=== PATIENT | male | born 1965 | race Caucasian/White ===

== ENCOUNTER 2025-05-26 14:38 | Emergency (ER) | payer OTHER, SELFPAY ==
--- NOTE | ~2025-05-26 | XR_ITS ---
EXAMINATION: XR chest 2V, 05/26/2025 15:02 PHYSICIAN PRACTICE MANAGER HISTORY: cough x3 days. Blood tinged sputum COMPARISON: No comparisons available. Technique: 2 views obtained. Findings: The lungs are clear, no effusion. No pneumothorax. Heart is normal size. Mediastinal and hilar contours are within normal limits. Bony thorax no acute abnormality. Impression: No acute cardiopulmonary abnormality. Reviewed, dictated and finalized at location P. ICIAN PRACTICE MANAGER Impression: No acute cardiopulmonary abnormality.
[2025-05-26 14:46] VITALS: BP 138/105; PULSE 87; RESP 18; TEMP 36.6; O2SAT 99
[2025-05-26 14:50] VITALS: BP 152/85
--- NOTE | 2025-05-26 15:01 | ED_ITS ---
HPI - URI/Sore Throat General Chief Complaint: Upper Respiratory Infection Stated Complaint: respiratory issues Time Seen by Provider: 05/26/25 14:53 Source: patient and RN notes reviewed Mode of arrival: ambulatory Limitations: no limitations History of Present Illness HPI Narrative: 59-year-old male patient presents today complaining of a 2-3 day history of cough, sore throat, rhinorrhea, postnasal drip. Today he coughed in the sputum was clear with some blood tinging. Denies shortness of breath or fever. He has been taking some Mucinex with little relief. Related Data Home Medications ?Medication ?Instructions ?Recorded ?Confirmed ?Last Taken ?Type atorvastatin 20 mg tablet mg 05/26/25 Unknown History elviteg 150 mg-cob 150 mg-emtricit tablet 05/26/25 Un known History 200 mg-tenofo alafenam 10 mg tablet (Genvoya) lisinopril 20 mg tablet mg 05/26/25 Unknown History metformin 500 mg tablet mg 05/26/25 Unknown History metoprolol succinate 25 mg mg PO 05/26/25 Unknown His tory tablet,extended release 24 hr semaglutide 2 mg/dose (8 mg/3 mL) mg subcut 05/26/25 Unknown History subcutaneous pen injector (Ozempic) Allergies Allergy/AdvReac Type Severity Reaction Status Date / Time acetaminophen (From Allergy Intermediate hives Verified 05/26/25 14:52 Darvocet-N) propoxyphene (From Allergy Intermediate hives Verified 05/26/25 14:52 Darvocet-N) PMFSH Comments At time of signature, I have reviewed and agree with nursing past medical, surgical, social and family history unless otherwise noted. Please see nursing chart for further information. There is no relevant family history pertinent to the presenting complaint Exam Narrative: GENERAL: Well-appearing, well-nourished, and in no acute distress. HEAD: Normocephalic, atraumatic. EYES: EOMI. No redness or drainage. Conjunctivae normal. ENT: Mucous membranes pink and moist. Nares clear. No rhinorrhea. TMs normal bilaterally. Throat normal. Uvula midline. NECK: Normal AROM. Supple. No lymphadenopathy. CHEST: No respiratory distress. Clear to auscultation. HEART: Regular rate and rhythm. No murmur appreciated. EXTREMITIES: Normal range of motion. No edema. SKIN: Warm, dry, no rash. Capillary refill normal. Normal skin turgor. NEURO: No focal deficits. Alert and oriented x3. Gait steady. PSYCH: Normal affect. No signs of depression or anxiety. Course Course Level of Care: Express Care Visit Vital Signs Vital signs: Vital Signs Temperature 98 F 05/26/25 14:46 Pulse Rate 87 05/26/25 14:46 Respiratory Rate 18 05/26/25 14:46 Blood Pressure 138/105 H 05/26/25 14:46 Pulse Oximetry 99 05/26/25 14:46 Oxygen Delivery Room Air 05/26/25 14:46 Temperature 98 F 05/26/25 14:46 Pulse Rate 87 05/26/25 14:46 Respiratory Rate 18 05/26/25 14:46 Blood Pressure 152/85 H 05/26/25 14:50 Pulse Oximetry 99 05/26/25 14:46 Oxygen Delivery Room Air 05/26/25 14:46 Reviewed MDM - URI/Sore Throat MDM Narrative Medical decision making narrative: 59-year-old male patient presents today complaining of a 2-3 day history of cough, sore throat, rhinorrhea, postnasal drip. Today he coughed in the sputum was clear with some blood tinging. Denies shortness of breath or fever. He has been taking some Mucinex with little relief. Upon exam, patient is mildly ill appearing. Lung auscultation normal. Chest x-ray normal. Symptoms likely vi ral in etiology. Discussed regu-ysp-rfonury medication use and duration of illness. No prescription medications indicated at this time. Anticipatory guidance given. Vital signs stable. Blood pressure mildly elevated. Differential Diagnosis Differential diagnosis: Likely upper respiratory infection, viral infection, bronchitis and other (Pneumonia) Imaging Data Radiologist's impression: ITS Impressions Chest X-Ray 05/26/25 15:08 Impression: No acute cardiopulmonary abnormality. Critical Care Time Critical Care Time Critical Care Time: No Discharge Plan Discharge Clinical Impression: Upper respiratory infection Qualifiers: URI type: unspecified URI Qualified Code(s): J06.9 - Acute upper respiratory infection, unspecified Patient Disposition: Home Condition: Stable Instructions: Upper Respiratory Infection (DC) Additional Instructions: Your chest x-ray is negative today. Your symptoms are likely due to a viral illness, which is not treated with antibiotics. Virus symptoms can last for up to 7-10days. Take Tylenol or ibuprofen for pain or fever. Rest and stay hydrated. Use a humidifier to wash your as the air. You may also try saline nasal spray to help with moisture inside your nasal passages. Follow up with your PCP in 7 days if symptoms are not improving. Go to the ER immediately if you develop shortness of breath, difficulty swallowing, or any other concerning symptoms. Patient Language: [place] Citizen Prescriptions: No Action metformin 500 mg tablet atorvastatin 20 mg tablet lisinopril 20 mg tablet metoprolol succinate 25 mg tablet extended release 24 hr PO Genvoya [phone] mg tablet Ozempic 2 mg/dose (8 mg/3 mL) pen injector SUBCUT Follow-up/Referrals: PHYSICIAN NOT ON STAFF,NONSTAFF [Primary Care Provider] Time of Disposition: 15:22
--- OUTSIDE RECORDS SUMMARY | 2025-05-26 22:34 | XMS_ITS | Clinical Summary ---
Author Organization [facility] Address [address], [address] [address] Phone Care Team Providers Care Telephone Worker Name Role Phone Chris John MD Primary Care Provider Social History Tobacco Use Types Packs/Day Years Used Date Smoking Tobacco: Never Assessed Sex and Gender Information Value Date Recorded Sex Assigned at Not on file Legal Sex Male 11:54 AM CDT Gender Identity Not on file Sexual Orientation Not on file Plan of Treatment Health Maintenance Due Date Last Done Comments Hepatitis C Virus (HCV) Screening 1965 TdaP Immunization 1965 Varicella Immunization (1 of 2 - 13+ 2-dose series) 1978 Hepatitis B Immunization (1 of 3 - 19+ 3-dose series) 1984 Cologuard 2010 Colonoscopy 2010 Colorectal Cancer Screening 2010 Immunochemical Fecal Occult Blood 2010 Pneumococcal Immunization (5 0+ years) (1 of 1 - PCV) 11/16/2015 Zoster Immunization (1 of 2) 11/16/2015 Influenza Immunization (#1) 2025 SARS-COV-2 Immunization ( - 2024- season) 2025 Respiratory Syncytial Virus (RSV) Immunization (Adult) (1 - 1-dose 75+ series) 2040 Human Papillomavirus (HPV) Immunization Aged Out No longer eligible b ased on patient's age to complete this topic Meningococcal Immunization (ACWY) Aged Out No longer eligible based on patient's age to complete this topic Rotavirus Immunization Aged Out No lo nger eligible based on patient's age to complete this topic Insurance [employer] [facility] OAP Care Teams Telephone Worker Relationship Specialty Start Date End Date Chris John MD [address] [facility] [address] [place] [address] PCP - General Internal Medicine 03/01/21
--- OUTSIDE RECORDS SUMMARY | 2025-05-26 22:34 | XMS_ITS | Clinical Summary ---
Author Organization [facility] D Address [address] [place] [address] Care Team Providers Care Leaded Glass Installer Name Role Phone Bowen Hurtado MD Unavailable [phone] No, Physician Primary Care Provider [phone] Allergies Active Allergy Reactions Criticality Noted Date Comments Propoxyphene Other (See comments) Low 10/17/2020 Medications aspirin 81 mg tablet take 1 tablet by oral route every other day 0 0 3 Active ALPRAZolam (XANAX) 0.5 mg tablet Take 1 tablet (0.5 mg total) by mouth nightly as needed for anxiety Active metoprolol XL (TOPROL-XL) 25 mg extended release tablet TAKE 1 TABLET (25 MG TOTAL) BY MOUTH DAILY. 90 tablet 3 5 11/10/19 26 Active semaglutide (OZEMPIC) 2 mg/dose (8 mg/3 mL) pen injector injection Inject 2 mg under the skin every 7 days 9 mL 3 5 Active metFORMIN (GLUCOPHAGE) 500 mg tablet Take 2 tablets (1,000 mg total) by mouth daily with breakfast 180 tablet 3 5 Active lisinopriL (PRINIVIL,ZESTRI L) 20 mg tabletIndication s:Encounter for issue of repeat prescription TAKE 1 TABLET BY MOUTH EVERY DAY 90 tablet 2 5 Active bnkibfh-dlj-kxlj i-tenof ALAFEN (Genvoya) [phone] mg tablet TAKE 1 TABLET BY MOUTH DAILY 90 tablet 5 Active atorvastatin (LIPITOR) 20 mg tablet TAKE 1 TABLET BY MOUTH EVERY DAY 90 tablet 1 Active COVID (COMIRNATY) 30 mcg/0.3 mL syringe Inject 0.3 mL into the muscle as instructed once for 1 dose 0.3 mL 5 05/03/20 25 Active Problems Problem Noted Date Diagnosed Date Hypersomnia 01/29/2024 Primary insomnia 01/29/2024 Other fatigue 09/18/2023 Overview (09/18/2023): Patient with borderline apnea in home sleep study 12/2022, however no true diagnosis. He is reporting feeling extremely fatigued despite getting a full night's sleep and requesting further evaluation. - provided with information on sleep hygiene - referral to sleep Medicine for additional evaluation -TSH today Obstructive sleep apnea 11/20/2022 11/28/19 Onychomycosis of toenail 11/18/2022 023 Hyperlipidemia 11/18/2022 11/27/2022 Assessment & Plan (05/14/2023 2:39 PM INDUSTRIAL MAINTENANCE MILLWRIGHT): On atorvastatin 20 -cont current regimen Angina pectoris, unspecified 10/19/2021 Anxiety 09/28/2021 Human immunodeficiency virus infection Overview (12/29/2024): HIV acquisition 1994, risk factor MSM. No history of opportunistic infections or known mutations. Initiated on therapy in 1995, with regimen until 3-4 years ago being Combivir + nelfinavir for > 10 years. Well controlled throughout his care with an undetectable VL for several years. Last labs: CD4 1404 (33%, 03/2022), VL <20 detected (08/2024) ART: Genvoya Genotype: None in system, no mutations documented - continue current regimen - VL - not sexually active currently - consider BIC/TAF/FTC vs DTG/3TC at next visit (he will read about these) Assessment & Plan (09/18/2023 11:53 AM CDT): - continue Genvoya for now - discussed with patient that we could consider switching to Delstrigo if he continues to have concerns regarding weight loss and central adiposity; he expresses interest, but states that he would like to finish his current fill of Genvoya first. Patient in agreement that he will call when he is almost out in order to request Rx for Delstrigo -due to insurance, patient's HIV meds should be sent to [facility] specialty pharmacy Assessment & Plan (05/14/2023 2:38 PM INDUSTRIAL MAINTENANCE MILLWRIGHT): Diagnosed 1994, likely via sexual acquisition. Current regimen of Genvoya since 2018. Well controlled with VL undetectable for several years. Last CD4 reported to be > 1200. Previously followed with Dr. John, and established care in the ID clinic 11/2021. No known history of OI or mutations - CMP, VL, baseline annuals today - Pt receives all meds via [facility] [facility] - Discussed that in the future he could potentially be transitioned to Biktarvy to not have a boosting agent, or potentially to a two-drug regimen such as Dovato or Juluca - Continue Genovya once daily at present Assessment & Plan (12/05/2021 10:16 PM CDT): Diagnosed 1994, likely via sexual acquisition. Current regimen of Genvoya since 2018. Well controlled with VL undetectable for several years. Last CD4 reported to be > 1200. Previously followed with Dr. John, and established care in the ID clinic 11/2021. No known history of OI or mutations - CMP, VL, baseline annuals today - Pt receives all meds via [facility] - Discussed that in the future he could potentially be transitioned to Biktarvy to not have a boosting agent, or potentially to a two-drug regimen such as Dovato or Juluca - Continue Genovya once daily at present Encounter for screening colonoscopy 07/05/2021 Overview (07/05/2021): Added automatically from request for surgery [id number] Type 2 diabetes mellitus 03/31/2019 Overview (12/29/2024): Latest A1c 7.2 from 6.2, per pt d/t increased calories during holiday season. Rx: Ozempic 2mg weekly, metformin 1g daily Changes: none Microalbumin/Creatinine ordered today 12/2024 ACEi/ARB prescribed: lisinopril 20 Antiplatelet therapy and statin prescribed yes Retinopathy no, last seen 05/2024 - continue current regimen - consider tirzepatide next visit pending weight Assessment & Plan (08/25/2024 2:40 PM INDUSTRIAL MAINTENANCE MILLWRIGHT): - increase ozempic to 2mg. Pt reports he has just received a new fill, would like to use up his old doses before switching over (last time he increased his dose, reported using his 0.5 biweekly until he finished then switched to 1 weekly) - repeat A1c today - meformin 1g daily for now. if A1c < 6.5, will downtitrate to 500 daily. Assessment & Plan (01/20/2024 5:30 PM CDT): - continue ozempic 1 weekly with monitoring of side effects - given A1c persistently under goal, reported GI side effects, will reduce dose of metformin from 1 BID to 1 daily to see if this helps with side effects while allowing ongoing GLP dosing. - continue to monitor A1c q3mo (6.4 today) - reminded pt to call to schedule annual eye exam Assessment & Plan (09/18/2023 11:44 AM CDT): Well controlled with metformin 1g BID, Ozempic 0.5mg weekly. However patient reports desire for additional weight loss (current BMI 26) - A1c today -continue metformin for now; we will consider decrease if A1c downtrends -increase Ozempic dose to 1mg weekly; patient to notify us if he develops significant GI side effects Assessment & Plan (05/14/2023 2:38 PM INDUSTRIAL MAINTENANCE MILLWRIGHT): Well controlled with metformin 1g BID, Ozempic 0.5mg weekly - A1c today. Managed by PCP Assessment & Plan (12/05/2021 10:17 PM CDT): Well controlled with metformin 1g BID, Ozempic 0.5mg weekly - A1c today. Managed by PCP Coronary artery disease invo lving [place] coronary artery of [place] heart without angina pectoris 07/02/2017 Assessment & Plan (10/17/2020 9:59 AM CDT): No symptoms of myocardial ischemia. Continue aspirin and Imdur. I did recommend regular aerobic exercise. A stationary bike would be great for him. Assessment & Plan (10/16/2019 9:35 AM CDT): No symptoms of myocardial ischemia. Continue aspirin and isosorbide. Assessment & Plan (10/17/2018 10:26 AM CDT): Asymptomatic. Continue aspirin and isosorbide. New prescription sent for nitroglycerin. Assessment & Plan (07/02/2017 9:52 AM INDUSTRIAL MAINTENANCE MILLWRIGHT): No symptoms of myocardial ischemia. Continue anti-platelet and nitrate therapy. Dyslipidemia 07/02/2017 Assessment & Plan (12/05/2021 10:19 PM CDT): On atorvastatin 40mg daily at present. Discussed that due to boosted PI in Genvoya, current dose would likely be too high (likely equivalent to > 80mg daily). Advised to discuss with Engineering Lab Technician to consider transitioning to an alternative statin. If atorvastatin is to be continued, would recommend a maximum dose of 20mg daily Assessment & Plan (10/17/2020 9:59 AM CDT): On chronic lipid lowering therapy with good control. No changes made. He is not having any side effects atorvastatin. The occasional Charley horse is not consistent with statin myalgia. Assessment & Plan (10/16/2019 9:36 AM CDT): He is on chronic high-intensity statin therapy. Lipids have historically been well controlled with this. In the current pandemic, there was not an opportunity for checking lipids with this visit. Assessment & Plan (10/17/2018 10:26 AM CDT): Point of care testing done today reviewed. Lipids look good. Continue atorvastatin. Assessment & Plan (07/02/2017 9:52 AM INDUSTRIAL MAINTENANCE MILLWRIGHT): On chronic lipid-lowering therapy. Today's LDL is below 100. Essential hypertension 07/02/2017 Assessment & Plan (05/14/2023 2:39 PM INDUSTRIAL MAINTENANCE MILLWRIGHT): Well controlled on lisinopril 20mg daily -cont current regimen Assessment & Plan (12/05/2021 10:20 PM CDT): Well controlled with lisinopril 20mg daily Assessment & Plan (10/17/2020 9:59 AM CDT): Blood pressure is adequately controlled on current regimen. No change was made. Assessment & Plan (10/16/2019 9:35 AM CDT): Blood pressure is adequately controlled on current regimen. No change was made. Assessment & Plan (10/17/2018 10:26 AM CDT): Blood pressure is adequately controlled on current regimen. No change was made. Assessment & Plan (07/02/2017 9:52 AM INDUSTRIAL MAINTENANCE MILLWRIGHT): Blood pressure is adequately controlled on current regimen. No change was made. Major depression 07/08/1990 Overview (09/28/2021): hospitalized Concussion 07/08/1973 Coronary artery disease Assessment & Plan (12/05/2021 10:18 PM CDT): History of KVNG to OM 2009, well controlled symptoms since, no PRN NTG use. Recent stress test WNL - Follow-up with Cardiology as planned - See HLD for discussion re: statin dose Resolved Problems Problem Noted Date Diagnosed Date Resolved Date Hyperglycemia 09/28/2021 01/11/2025 Diabetes mellitus, type 2 Encounters Date Type Department Care Team Description 05/14/2025 2:00 PM INDUSTRIAL MAINTENANCE MILLWRIGHT Procedure visit [facility] Medicine Infectious Diseases [address] [place] [phone] Encounter for immunization (Primary Dx) 05/07/2025 Telephone [facility] Medicine Infectious Diseases [address] [place] [address] [place] [address] Jasmine Turner CMA 05/05/2025 1:15 PM CDT Immunization [facility] [address] [place] [phone] Need for vaccination (Primary Dx) 05/03/2025 Orders Only [facility] Medicine Infectious Diseases [address] [place] [phone] Abiodun Mcclellan MD Asymptomatic HIV infection, with no history of HIV-related illness (HCC) (Primary Dx) from Last 3 Months Immunizations Immunization Administration Dates Next Due COVID-19 mRNA (WinWeb) 0.3 m L (30 mcg) vaccine (12 years and up) 05/14/2025,04/21/2024,05/14/2023 Hep A, Adult 11/27/2022,07/17/2022 Hep B, Dialysis 05/14/2023,11/27/2022,07/17/2022 Influenza, Quadrivalent, Spl it, Preservative Free, Intramuscular 04/30/2023,05/22/2022 Influenza, Trivalent, Preser vative Free, Intramuscular 05/05/2025,04/21/2024 Meningococcal A,C,W,Y-TT (Aka Menquadfi) 024,01/14/2024 Pneumococcal Polysaccharide PPV23 12/05/2021 Tdap 12/05/2021 ZOSTER Recombinant 11/22/2023,09/17/2023 Surgical History Surgery Date Site/Laterality Comments TONSILLECTOMY 07/08/1986 - 07/07/1987 CORONARY STENT PLACEMENT 07/08/2009 - 07/07/2010 Obtuse Marginal Medical History Medical History Date Comments Positive laboratory testing for human immunodefi ciency virus (HCC) Concussion 1974 Major depression 1990 hospitalized Coronary artery disease Essential hypertension Dyslipidemia Hyperglycemia Diabetes mellitus, type 2 Anxiety Family History Medical History Relation Name Comments Coronary artery disease Brother 2 Stent Brother 2 Coronary artery disease Father Relation Name Status Comments Brother 1 Alive Brother 2 Father Alive Maternal Grandfather Maternal Grandmother Paternal Grandfather Paternal Grandmother Social History Tobacco Use Types Packs/Day Years Used Date Smoking Tobacco: Never Smokeless Tobacco: Never Tobacco Cessation:Counseling Given: Not Answered Alcohol Use Standard Drinks/Week Comments Yes 0 (1 standard drink = 0.6 oz pur e alcohol) PHQ-2 Answer Date Recorded PHQ-2 Total Score (If total score is 3 or more points, staff should administer the PHQ-9) 2 12/23/2024 PHQ-9 Answer Date Recorded PHQ-9 Total Score 9 08/20/2024 Sex and Gender Information Value Date Recorded Sex Assigned at Not on file Legal Sex Male 2:07 AM INDUSTRIAL MAINTENANCE MILLWRIGHT Gender Identity Male 10/16/2020 8:01 PM CDT Sexual Orientation Not on file Last Filed Vital Signs Vital Sign Reading Time Taken Comments Blood Pressure 124/82 12/29/2024 1:13 PM CDT Pulse 77 12/29/2024 1:13 PM CDT Temperature 36.5 C (97.7 F) 12/29/2024 1:13 PM CDT Respiratory Rate 18 04/21/2024 1:36 PM CDT Oxygen Saturation 97% 12/29/2024 1:13 PM CDT Inhaled Oxygen Concentration - - Weight 74.8 kg (165 lb) 12/29/2024 1:13 PM CDT Height 170.2 cm (5' 7.01) 12/29/2024 1:13 PM CD T Body Mass Index 25.84 12/29/2024 1:13 PM CDT Plan of Treatment Health Maintenance Due Date Last Done Comments HLA B 5701 Typing 1965 Prostate Cancer Screening-PSA 1965 Dilated Eye Exam 1965 Foot Exam 1965 HIV+ Chlamydia and Gonorrhea Screening (Rectal) 1976 HIV+ Chlamydia and Gonorrhea Screening (Throat) 1978 G6PD 11/16/1983 Regular Well Visit/Exam 18-64 11/16/1983 Pneumococcal vaccine <65 (2 of 2 - PCV) 12/05/2022 12/05/2021 Proteinuria screening Urinalysis (UA) 03/13/2023 03/13/2022 Hepatitis A Vaccines (2 of 2 - Risk 2-dose series) 05/30/2023 11/27/2022, 07/17/2022 HIV + Chlamydia and Gonorrhe a Screening (Urine) 11/28/2023 11/27/2022 T Spot (quantiferon gold) 11/28/2023 11/27/2022, Osteoporosis Screening-Bone Density Scan 04/05/2025 04/05/2022 Hepatitis C Screening 04/21/2025 04/21/2024 , 11/27/2022, 12/05/2021 eGFR 08/28/2025 08/28/2024, 04/07, 01/14/2024, Additional history exists Lipid Panel 10/30/2025 10/30/2024, 10/07, 09/17/2023, Additional history exists Covid-19 Vaccine (6 - Pfizer risk season) 2025 05/14/2025, 04/21/2024, 05/14/2023, Additional history exists Albumin Creatinine Ratio, Urine 12/29/2025 , 01/14/2024 Depression Screening 12/29/2025 12/29/2024, 04/21/2024, 04/21/2024, Additional history exists Hemoglobin A1C 12/29/2025 12/29/2024, 2 07/2024, 04/21/2024, Additional history exists RPR Screening 12/29/2025 12/29/2024, 08/09, 09/17/2023, Additional history exists Colon Cancer Screening-Colonoscopy 10/17/2031 10/16/2021 DTaP/Tdap/Td Vaccine (2 - Td or Tdap) 12/06/2031 12/05/2021 Colon Cancer Screening-CT Colonography Discontinued 10/16/2021 Colon Cancer Screening-DNA Stool Discontinued 10/17/19 Colon Cancer Screening-FIT Discontinued 10/16/2021 Colon Cancer Screening-Sigmoidoscopy Discontinued 10/16/2021 Hepatitis B Vaccines Completed 05/14/2023, 11/27/2022, 07/17/2022 Zoster Vaccine Completed 11/22/2023, 09/17/2023 Influenza Vaccine Completed 05/05/2025, , 04/30/2023, Additional history exists Procedures Procedure Name Priority Date/Time Associated Diagnosis Comments HEMOGLOBIN A1C Routine 12/29/2024 2:01 PM CDT Type 2 diabetes mellitus without complication, without long-term current use of insulin (HCC) RPR Routine 12/29/2024 2:01 PM CDT Asymptomatic HIV infection, with no history of HIV-related illness (HCC) ALBUMIN CREATININE RATIO, URINE Routine 12/29/2024 1:54 PM CDT Type 2 diabetes mellitus without complication, without long-term current use of insulin (HCC) POCT LIPID PANEL Routine 10/30/2024 10:2 6 AM CDT Coronary artery disease involving [place] coronary artery of [place] heart without angina pectoris COMPREHENSIVE METABOLIC PANEL Routine 08/28/2024 1:17 PM INDUSTRIAL MAINTENANCE MILLWRIGHT Asymptomatic HIV infection, with no history of HIV-related illness (HCC) HEPATITIS C ANTIBODY Routine 04/21/2024 2:26 PM CDT Asymptomatic HIV infection, with no history of HIV-related illness (HCC) T-SPOT.TB Routine 11/27/2022 3:45 PM CDT Asymptomatic HIV infection, with no history of HIV-related illness (HCC) DEXA AXIAL SKELETON BONE DENSITY 1 OR MORE SITES Schedule Routine, Read Routine (OP Routine) 04/05/2022 11:36 AM CDT Screening for osteoporosis URINALYSIS AND REFLEX TO MICROSCOPIC Routine 03/13/2022 1:20 PM CDT Asymptomatic HIV infection, with no history of HIV-related illness (HCC) COLONOSCOPY 10/16/2021 11:42 AM CDT from Last 3 Months or Most Recently Relevant to Health Maintenance Results * RPR Blood (12/29/2024 2:01 PM CDT) RPR Nonreactive Nonreactive Blood 12/29/2024 2:01 PM CDT 12/29/2024 3:09 PM CDT Steven Blank MD LAB MICROBIOLOGY - GENER AL ORDERABLES Final Result Performing Organization Address [facility] Co de Phone Number [facility] [place] [address] * (ABNORMAL) Hemoglobin A1c (12/29/2024 2:01 PM CDT) Hgb A1C 6.2(H) 4.0 - 5.6 % Estimated Average Glucose 131 mg/dL [facility] Comment: The ADA recommends reporting an estimated Average Glucose (eAG) with all Hemoglobin A1c results using the equation derived from a study of 507 normal and diabetic adults. Minority populations were underrepresented and children were not included. (Diabetes Care 2020; 43(S1): S66-S76). The eAG is not equivalent to a fasting glucose. Blood 12/29/2024 2:01 PM CDT 12/29/2024 3:09 PM CDT Steven Blank MD LAB BLOOD ORDERABLES Fin al Result Performing Organization Address [facility] de Phone Number [facility] [place] [address] * Albumin Creatinine Ratio, Urine (12/29/2024 1:54 PM CDT) Albumin Ur <12.0 mg/L Comment: Interpretive Data No reference range established. Current interpretive data was last revised 2018. Creatinine Ur 98.6 mg/dL [facility] Comment: Interpretive Data No reference range established. Current interpretive data was last revised 2018. Albumin Creatinine Ratio, Ur <12 1 - 29 mg/g [facility] Urine 12/29/2024 1:54 PM CDT 12/29/2024 5:54 PM CDT Steven Blank MD LAB URINE ORDERABLES Fin al Result Performing Organization Address [facility] Co de Phone Number [facility] Department [place] [address] * POCT lipid panel (10/30/2024 10:26 AM CDT) Cholesterol, POC 116 mg/dL HDL, POC 38 mg/dL Triglycerides, POC 98 mg/dL LDL Cholesterol POC 59 mg/dL Chol/HDL Ratio, POC 1.6 Non-HDL Cholesterol, POC 79 mg/dL Cholesterol Total, POC 116 mg/dL Capillary blood 10/30/2024 1 0:26 AM CDT us Bowen Hurtado MD POINT OF CARE TEST ORDERABL ES Final Result * (ABNORMAL) Comprehensive metabolic panel (08/28/2024 1:17 PM INDUSTRIAL MAINTENANCE MILLWRIGHT) Glucose 110(H) 65 - 99 mg/dL [facility] Comment: Fasting reference interval For someone without known diabetes, a glucose value between 100 and 125 mg/dL is consistent with prediabetes and should be confirmed with a follow-up test. BUN 13 7 - 25 mg/dL [facility] Creatinine 1.08 0.70 - 1.30 mg/dL [facility] eGFR 80 > OR = 60 mL/min/1.7 3m2 [facility] BUN/creat ratio SEE NOTE: 6 - 22 (calc) [facility] Comment: Not Reported: BUN and Creatinine are within reference range. Sodium 143 135 - 146 mmol/L [facility] Potassium, pl 3.9 3.5 - 5.3 mmol/L [facility] Chloride 103 98 - 110 mmol/L [facility] CO2 28 20 - 32 mmol/L [facility] Calcium 9.7 8.6 - 10.3 mg/dL [facility] Protein, sr 7.3 6.1 - 8.1 g/dL [facility] Albumin 4.6 3.6 - 5.1 g/dL [facility] GLOBULIN 2.7 1.9 - 3.7 g/dL (calc) [facility] Alb/glob ratio 1.7 1.0 - 2.5 (calc) [facility] Bilirubin, total 0.9 0.2 - 1.2 mg/dL [facility] Alk phos 85 35 - 144 U/L [facility] AST 30 10 - 35 U/L [facility] ALT (SGPT) 42 9 - 46 U/L [facility] Blood 08/28/2024 1:17 PM INDUSTRIAL MAINTENANCE MILLWRIGHT 08/28/2024 1:18 PM INDUSTRIAL MAINTENANCE MILLWRIGHT David Casanova MD PhD LAB BLOOD ORDERABLES Final Result [facility] [address] [place] [address] * Hepatitis C antibody Blood (04/21/2024 2:26 PM CDT) Pathologist [facility] Hep C Ab Nonreactive Nonreactive Comment:Antibodies to HCV no t detected. Does NOT exclude the possibility of recent exposure to HCV. Current interpretive data was last revised on 22 Blood 04/21/2024 2:26 PM CDT 04/21/2024 7:35 PM CDT David Casanova MD PhD LAB MICROBIOLOGY - GENERAL ORDERABLES Final Result Performing Organization Address City/[facility]/ZIP Co de Phone Number [facility] [place] [address] * T-SPOT.TB (11/27/2022 3:45 PM CDT) T-SPOT.TB Negative [facility] Comment: Normal Value: Negative A negative test result does not exclude the possibility of exposure to or infection with Mycobacterium tuberculosis (M. tuberculosis). Patients with recent exposure to TB infected individuals exhibiting a negative T-SPOT.TB result should be considered for retesting within 6 weeks or if other relevant clinical symptoms indicate. Results from T-SPOT.TB testing must be used in conjunction with each individual's epidemiological history, current medical status, and results of other diagnostic evaluations. The T-SPOT.TB test is qualitative and results are reported as positive, borderline or negative, given that the test controls perform as expected. In line with the Centers for Disease Control and Prevention's 2010 recommendation to report quantitative measurements alongside the qualitative result, the laboratory provides spot counts for informational purposes only. The T-SPOT.TB test should not be interpreted as a quantitative test. T-SPOT.TB Panel A Spot Count 0 [facility] T-SPOT.TB Panel B Spot Count 0 [facility] T-SPOT.TB Negative Control Passed [facility] T-SPOT.TB Positive Control Passed [facility] Comment: Test Performed at: [employer] [employer] [address] [place] [phone] SULY CEDENO MD,PHD Blood 11/27/2022 3:45 PM CDT 11/27/2022 4:26 PM CDT John Guajardo MD LAB MICROBIOLOGY - GENERAL ORDERABLES Final Result [facility] Department [place] [address] * Dexa Axial Skeleton Bone Density 1 or 2 Site (04/05/2022 11:36 AM CDT) Anatomical Region Laterality Modality Body N/A Other 04/05/2022 6:57 PM CDT Narrative 04/05/2022 6:59 PM CDT EXAM DESCRIPTION: DEXA AXIAL SKELETON BONE DENSITY 1 OR MORE SITES REASON FOR STUDY: 56 y/o year old M with given history of screening. 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 FINDINGS: AP LUMBAR SPINE L1-L4: Total BMD is 1.356 g/cm2 T-score is 2.8 LEFT HIP: Total BMD is 1.174 g/cm2 T-score is 1.9 Femoral neck BMD is 0.857 g/cm2 T-score is 0.1 FRAX: FRAX not reported due to T-scores of hip, femoral neck and/or spine being at or above -1.0 (Normal). IMPRESSION: Based on the left femoral neck bone mineral density (T-score 0.1 ) the patient has normal bone mass . REFERENCE: Bone mineral density: Normal (T-score above or = -1.0) Low bone mass (T-score between -1.0 and -2.5) replaces the previously used term osteopenia Osteoporosis (T-score = or below -2.5) Medical evaluation for secondary causes of low bone mineral density may be appropriate. FRAX is a World Health Organization validated fracture risk assessment tool that calculates a person's 10 year probability of a major osteoporosis related fracture and hip fracture. According to the National Osteoporosis Foundation guidelines, postmenopausal women and men age 50 or older with low bone mass and a 10 year probability of a major osteoporosis related fracture = or greater than 20% or a 10 year probability of a hip fracture = or greater than 3% should be considered for treatment. For further information, including treatment recommendations, please refer to the 2013 ISCD Official Positions (http://www.iscd.org) and the NOF's Clinician's Guide to Prevention and Treatment of Osteoporosis (http://www.nof.org/professionals/clinical-guidelines) THIS IS AN ELECTRONICALLY VERIFIED FINAL REPORT 04/05/2022 6:59 PM - Electronically signed by Denis Mirza M.D. MF: MARCIAL Report ID: [id number] Reading Location: [place] [address] Procedure Note Denis Mirza MD - 04/05/2022 EXAM DESCRIPTION: DEXA AXIAL SKELETON BONE DENSITY 1 OR MORE SITES REASON FOR STUDY: 56 y/o year old M with given history ofscreening. 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 (S/N [id number]) CLINICAL INFORMATION: Current height: 68 inches Maximum height: 68 inches Weight: 170 pounds Risk factors: Caffeine use COMPARISON: None available. FINDINGS: AP LUMBAR SPINE L1-L4: Total BMD is 1.356 g/cm2 T-score is 2.8 LEFT HIP: Total BMD is 1.174 g/cm2 T-score is 1.9 Femoral neck BMD is 0.857 g/cm2 T-score is 0.1 FRAX: FRAX not reported due to T-scores of hip, femoral neck and/or spine beingat or above -1.0 (Normal). IMPRESSION: Based on the left femoral neck bone mineral density (T-score 0.1 )the patient has normal bone mass . REFERENCE: Bone mineral density: Normal (T-score above or = -1.0) Low bone mass (T-score between -1.0 and -2.5) replaces thepreviously used term osteopenia Osteoporosis (T-score = or below -2.5) Medical evaluation for secondary causes of low bone mineral density may be appropriate. FRAX is a World Health Organization validated fracture risk assessmenttool that calculates a person's 10 year probability of a major osteoporosisrelated fracture and hip fracture. According to the National OsteoporosisFoundation guidelines, postmenopausal women and men age 50 or older with low bonemass and a 10 year probability of a major osteoporosis related fracture = or greater than 20% or a 10 year probability of a hip fracture = or greaterthan 3% should be considered for treatment. For further information, including treatment recommendations, please referto the 2013 ISCD Official Positions (http://www.iscd.org) and the NOF's Clinician's Guide to Prevention and Treatment of Osteoporosis (http://www.nof.org/professionals/clinical-guidelines) THIS IS AN ELECTRONICALLY VERIFIED FINAL REPORT 04/05/2022 6:59 PM - Electronically signed by Denis Mirza M.D. MF: MARCIAL Report ID: [id number] Reading Location: [place] [address] John Guajardo MD [facility] [place] PROCEDURES Final Result * Urinalysis reflex to microscopic (03/13/2022 1:20 PM CDT) Color, ur Yellow Yellow [facility] Clarity, ur Clear Clear [facility] Specific gravity, ur 1.009 1.003 - 1.030 [facility] pH, urine 6.0 [facility] Protein, ur ql Negative Negative [facility] Glucose, ur ql Negative Negative [facility] Ketones, ur Negative Negative [facility] Bilirubin, ur Negative Negative [facility] Blood, ur Negative Negative [facility] Urobilinogen, ur <2.0 <2.0 mg/dL [facility] Nitrite, ur Negative Negative [facility] Leukocyte esterase, ur Negative Negative [facility] UA reflex comment Reflex conditions for microscopic UA not met. [facility] Urine 03/13/2022 1:20 PM CDT 03/13/2022 3:13 PM CDT Narrative [facility] - 03/13/2022 3:36 PM CDT Urine pH is affected by diet, medications, systemic acid-base disturbances, and renal tubular function. pH may affect urinary stone formation. For example, urine pH below 6.0 may help reduce the tendency for calcium phosphate stones and pH greater than 6.0 may reduce the tendency for uric acid stone formation. Source: [employer]. Last revised 07-18-2017 John Guajardo MD LAB URINE ORDERABLE S Final Result [facility] Department [place] [address] * COLONOSCOPY (10/16/2021 11:42 AM CDT) Anatomical Region Laterality Modality Other Narrative Procedure Note Joycelyn London MD - 10/16/2021 11:42 AM CDT [facility] Patient Name: Kiel Cristina Procedure Date: 10/16/2021 11:42 AM Date of : 1965 Admit Type: Outpatient Age: 55 Gender: Male Attending MD: Joycelyn London M.D. Room: [facility] ENDOSCOPY ROOM 1 Note Status: Finalized Patient Profile: This is a 55 year old male. No family history ofcolon cancer. Screening colonoscopy. Procedure: Colonoscopy Indications: Screening for colorectal malignant neoplasm, Thisis the patient's first colonoscopy Referring MD: Chris John M.D. Providers: Joycelyn London M.D. Impression: - The entire examined colon is unremarkable. - Diverticulosis in the entire examined colon. - Internal hemorrhoids. - No specimens collected. Recommendation: - Repeat colonoscopy in 10 years for screening purposes. - Continue present medications. Medicines: Monitored Anesthesia Care Complications: No immediate complications. Estimated Blood Loss: Estimated blood loss: none. Procedure: Pre-Anesthesia Assessment: - Prior to the procedure, a History and Physicalwas performed, and patient medications and allergieswere reviewed. The patient's tolerance of previous anesthesia was also reviewed. The risks andbenefits of the procedure and the sedation options and risks were discussed with the patient. All questions were answered, and informed consent was obtained. Prior Anticoagulants: The patient has taken noanticoagulant or antiplatelet agents. ASA Grade Assessment: III -A patient with severe systemic disease. Afterreviewing the risks and benefits, the patient was deemed in satisfactory condition to undergo the procedure. The benefits, risks and alternatives of theprocedure and sedation were discussed and informed consentwas obtained. All questions were answered. Please referto the signed informed consent document in the medical record. The bowel preparation used was Miralax via split dose instruction. The bowel preparation usedwas bisacodyl tablets via split dose instruction. The scope was passed under direct vision. The Pediatric Colonoscope PCF-[id number] was introducedthrough the anus and advanced to the the cecum, identifiedby appendiceal orifice and ileocecal valve. Thequality of the bowel preparation was good. Bowel prep was administered using a split dose. Findings: The perianal and digital rectal examinations were normal. The cecum appeared normal. The terminal ileum was intubated andappeared normal The colon (entire examined portion) appeared normal overall. Nopolyps and no mass lesions noted. Multiple medium-mouthed diverticula were found in the entire colon. Internal hemorrhoids were found during retroflexion. The hemorrhoids were medium size. Electronically signed by Joycelyn London M.D. Joycelyn London M.D. 10/16/2021 1:57:12 PM Number of Addenda: 0 Note Initiated On: 10/16/2021 11:42 AM Procedure Code(s): --- Professional --- 66400, Colonoscopy, flexible; diagnostic, including collection of specimen(s) by brushing or washing, when performed (separateprocedure) Diagnosis Code(s): --- Professional --- Z12.11, Encounter for screening for malignant neoplasm of colon K64.8, Other hemorrhoids K57.30, Diverticulosis of large intestine without perforation orabscess without bleeding CPT copyright 2020 [employer]. All rights reserved. The codes documented in this report are preliminary and upon information coder reviewmay be revised to meet current compliance requirements. 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
--- OUTSIDE RECORDS SUMMARY | 2025-05-26 22:39 | XMS_ITS | Data Portability ---
Author Organization [place] [facility] 2nd Watch, Main Office Address [address] [place] [address] Assessment Encounter Date Assessment Date Assessment LastModified by Organization Details LastModified Time 11/20/2022 11/20/2022 Cscope- 10/2021- Karadaghy- normal per pt- repeat 10/2031 PSA- 05/2022 DM eye exam- March 2022 Call office if worse, ER if life threatening illness RTC 6 months and PRN He voices understanding of plan and agrees [email or web address] Not available 11/20/2022 10:12:44 05/22/2023 05/22/2023 Cscope- 10/2021- Karadaghy- normal per pt- repeat 10/2031 PSA- 05/2022- ordered DM eye exam- March 2022 Call office if worse, ER if life threatening illness RTC 6 months and PRN He voices understanding of plan and agrees [email or web address] Not available 05/22/2023 17:25:01 Plan of Treatment Reminders Order Date Submit Date Provider Last Modified By Organization Details Last Modified Time Details Appointments None recorded. Lab PSA, serum or plasma 2022 023 [email or web address] [facility], [address] [place], [address], 4 08:41:42 HbA1c (hemoglobin A1c), blood 2022 023 [email or web address] [facility], [address] [place], [address], 3 14:47:46 CBC w/ auto diff 2022 023 [email or web address] [facility] [address] [place], [address], 14:47:46 CMP, serum or plasma [address] [place], [address], 14:47:46 microalbumi n/creatinin e, mass ratio, urine [address] [place], [address], 14:47:46 lipid panel, serum 2022 023 [place] [address] [facility] [address] [place], [address], 3 14:47:47 TSH, serum, reflex free T4 2022 023 [place] [address] [facility] [address] [place], [address], 14:47:47 Referral None recorded. Procedures None recorded. Surgeries None recorded. Imaging home sleep study 2022 [email or web address] Vivas [facility], [address] [place] [address] [place], [address], 3 16:21:38 Medication Orders Ozempic 0.25 mg or 0.5 mg (2 mg/3 mL) subcutaneou s pen injector 2022 [facility], [facility], [place], [address], 15:01:00 Patient TargetsNo targets recorded. Patient Instructions Encounter Date Encounter Id Patient Instructions Last Modified By Organization Details Last Modified Time 11/20/2022 [id number] INFLUENZA VACCIN E Next vaccination to be given fall of 2022 TD/TDAP Patient will get at local pharmacy/health department PNEUMONIA VACCINE per ID SHINGLES Patient will get at local pharmacy/health department PSA No screening necessary patient is up to date COLORECTAL SCREENING No screening necessary patient is up to date DEPRESSION SCREENING Negative BMI Overweight Continue healthy eating & exercise NUTRITION Continue healthy eating & exercise PHYSICAL ACTIVITY Need more exercise/physical activity minimum of 30-40 minutes of activity that causes mild breathlessness/day ALCOHOL USE No alcohol use TOBACCO USE non smoker LUNG CANCER SCREENING Non Smoker-not indicated SEXUALLY ACTIVE No HEPATITIS C SCREENING per ID GLUCOSE SCREENING Known Diabetic LIPID SCREENING Diagnosis of Hyperlipidemia [email or web address] Not available 11/20/2022 11:44:03 Reason for Referral None Reported. Results Created Date Observation Date Name Description Value Unit Range Abnormal Flag Note LastModifiedBy Organization Detail LastModifiedTime 05/12/20 21 05/12/2021 MICRO ALBUM N RNDM W/CRE AT RATIO ur creat 118.50 mg/dL REFER ENCE RANGE NOT ESTAB LISHE D FOR RANDO M URINE CREAT ININE Not Available [facility] (Lab) [address] [place], [address], 05/12/2021 21:35:07 05/12/20 21 05/12/2021 MICRO ALBUM N RNDM W/CRE AT RATIO microalb 10.4 mg/L 0.0-16 .6 Not Available [facility] (Lab) [address] [place], [address], 05/12/2021 21:35:07 05/12/20 21 05/12/2021 MICRO ALBUM N RNDM W/CRE AT RATIO ratio 9 mcg/m g 0-29 THE AMERI CAN DIABE JOSE ANTONIO ASSOC IATIO N DEFIN ES ABNOR MALIT IES IN ALBUM IN EXCRE TION FOLLO WS: CATEG ORY RESUL T (MCG/ MG CREAT ININE ) BETTIE L <30 MICRO ALBUM INURI A 30-29 9 CLINI ARUNA ALBUM INURI A > OR = 300 THE ADA RECOM MENDS THAT 2 OF 2 SPECI MENS COLLE CTED WITHI N A 3- TO 6-MON TH PERIO D BE ABNOR MAL BEFOR E CONSI ROLO G A PATIE NT TO HAVE CROSS ED ONE OF THESE DIAGN OSTIC THRES HOLDS . REFER ENCE: DIABE JOSE ANTONIO CARE, VOL. 26: [id number] 96, ARIELLEUA RY 2002 Not Available [facility] (Lab) [address] [place], [address], 05/12/2021 21:35:07 05/12/20 21 05/12/2021 URINA LYSIS COMPL ETE/I RIS W/RFX pH 5.0 pH_un its 5.0-9. 0 Not Available [facility] (Lab) [address] [place], [address], 05/12/2021 16:28:45 05/12/20 21 05/12/2021 URINA LYSIS COMPL ETE/I RIS W/RFX leukocytes negati ve mike/u L negati ve- Not Available [facility] (Lab) [address] [place], [address], 05/12/2021 16:28:45 05/12/20 21 05/12/2021 URINA LYSIS COMPL ETE/I RIS W/RFX nitrite negati ve negati ve- Not Available [facility] (Lab) [address] [place], [address], 05/12/2021 16:28:45 05/12/20 21 05/12/2021 URINA LYSIS COMPL ETE/I RIS W/RFX protein negati ve mg/dL negati ve- Not Available [facility] (Lab) [address] [place], [address], 05/12/2021 16:28:45 05/12/20 21 05/12/2021 URINA LYSIS COMPL ETE/I RIS W/RFX glucose 70 mg/dL normal - abnormal Not Available [facility] (Lab) [address] [place], [address], 05/12/2021 16:28:45 05/12/20 21 05/12/2021 URINA LYSIS COMPL ETE/I RIS W/RFX ketones negati ve mg/dL negati ve- Not Available [facility] (Lab) [address] [place], [address], 05/12/2021 16:28:45 05/12/20 21 05/12/2021 URINA LYSIS COMPL ETE/I RIS W/RFX urobilinogen normal mg/dL normal - Not Available [facility] (Lab) [address] [place], [address], 05/12/2021 16:28:45 05/12/20 21 05/12/2021 URINA LYSIS COMPL ETE/I RIS W/RFX bilirubin negati ve mg/dL negati ve- Not Available [facility] (Lab) [address] [place], [address], 05/12/2021 16:28:45 05/12/20 21 05/12/2021 URINA LYSIS COMPL ETE/I RIS W/RFX blood negati ve mg/dL negati ve- Not Available [facility] (Lab) [address] [place], [address], 05/12/2021 16:28:45 05/12/20 21 05/12/2021 URINA LYSIS COMPL ETE/I RIS W/RFX white blood cells 0-8 /i??h pfi?? 0-8 Not Available [facility] (Lab) [address] [place], [address], 05/12/2021 16:28:45 05/12/20 21 05/12/2021 URINA LYSIS COMPL ETE/I RIS W/RFX red blood cells none /i??h pfi?? 0-4 Not Available [facility] (Lab) [address] [place], [address], 05/12/2021 16:28:45 05/12/20 21 05/12/2021 URINA LYSIS COMPL ETE/I RIS W/RFX bacteria none Not Available [facility] (Lab) [address] [place], [address], 05/12/2021 16:28:45 05/12/20 21 05/12/2021 URINA LYSIS COMPL ETE/I RIS W/RFX mucous occasi onal /i??l pfi?? abnormal Not Available [facility] (Lab) [address] [place], [address], 05/12/2021 16:28:45 05/12/20 21 05/12/2021 URINA LYSIS COMPL ETE/I RIS W/RFX squamous epithelial occasi onal /i??l pfi?? abnormal Not Available [facility] (Lab) [address] [place], [address], 05/12/2021 16:28:45 05/12/20 21 05/12/2021 URINA LYSIS COMPL ETE/I RIS W/RFX non-squamous epithelial 3 Not Available [facility] (Lab) [address] [place], [address], 05/12/2021 16:28:45 05/12/20 21 05/12/2021 URINA LYSIS COMPL ETE/I RIS W/RFX hyaline cast occasi onal /i??l pfi?? none seen- abnormal Not Available [facility] (Lab) [address] [place], [address], 05/12/2021 16:28:45 05/12/20 21 05/12/2021 URINA LYSIS COMPL ETE/I RIS W/RFX color yellow Not Available [facility] (Lab) [address] [place], [address], 05/12/2021 16:28:45 05/12/20 21 05/12/2021 URINA LYSIS COMPL ETE/I RIS W/RFX appear clear Not Available [facility] (Lab) [address] [place], [address], 05/12/2021 16:28:45 05/12/20 21 05/12/2021 URINA LYSIS COMPL ETE/I RIS W/RFX specific gravity 1.020 1.001- 1.030 Not Available [facility] (Lab) [address] [place], [address], 05/12/2021 16:28:45 05/12/20 21 05/12/2021 TSH thyroid-stim ulating hormone 2.640 uIU/m L 0.465- 4.680 Not Available [facility] (Lab) [address] [place], [address], 05/12/2021 12:31:41 05/12/20 21 05/12/2021 PSA SCREE N PSA medicare screen 1.11 NG/mL 0.00-4 .00 Not Available [facility] (Lab) [address] [place], [address], 05/12/2021 12:31:20 05/12/20 21 05/12/2021 T4 FREE free T4 0.95 NG/dL 0.78-2 .19 Not Available [facility] (Lab) [address] [place], [address], 05/12/2021 12:16:42 05/12/20 21 05/12/2021 LIPID PANEL cholesterol 123 mg/dL 140-19 9 low NIH FABIOLA NSUS RECOM MENDA TION FOR AUGUSTUS STERO L: ADULT CHILD LOW RISK: <200 <170 BORDE RLINE : <200- 239 ----- HIGH RISK: >240 >200 Not Available [facility] (Lab) [address] [place] [address], [address], 05/12/2021 11:58:08 05/12/20 21 05/12/2021 LIPID PANEL triglyceride s 161 mg/dL 0-150 high NIH FABIOLA NSUS REPOR T RECOM MENDA TION FOR TRIGL YCERI KVNG: ADULT CHILD LOW RISK: <150 ----- BODER LINE: 150-1 99 ----- HIGH RISK: >200 ----- Not Available [facility] (Lab) [address] [place], [address], 05/12/2021 11:58:08 05/12/20 21 05/12/2021 LIPID PANEL HDL cholesterol 35 mg/dL 40- low Not Available [facility] (Lab) [address] [place], [address], 05/12/2021 11:58:08 05/12/20 21 05/12/2021 LIPID PANEL LDL cholesterol, calculated 56 mg/dL 0-130 NIH FABIOLA NSUS REPOR T RECOM MENDA TIONS FOR LDL: ADULT CHILD LOW RISK <130 <110 (OPTI MAL LDL) <100 ----- BORDE RLINE : 130-1 59 ----- HIGH RISK: >160 >130 A TRIGL YCERI DE RESUL T >400 INVAL IDATE S THE CALCU LATIO N FOR LDL FRACT IONAT ION - THE LDL RESUL T WILL NOT BE REPOR PORTILLO. Not Available [facility] (Lab) [address] [place], [address], 05/12/2021 11:58:08 05/12/20 21 05/12/2021 COMPR EHENS NAOMI METAB OLIC PANEL sodium 140 mmol/ L 137-14 5 Not Available [facility] (Lab) [address] [place], [address], 05/12/2021 11:58:04 05/12/20 21 05/12/2021 COMPR EHENS NAOMI METAB OLIC PANEL potassium 4.9 mmol/ L 3.5-5. 1 Not Available [facility] (Lab) [address] [place], [address], 05/12/2021 11:58:04 05/12/20 21 05/12/2021 COMPR EHENS NAOMI METAB OLIC PANEL chloride 105 mmol/ L 98-107 Not Available [facility] (Lab) [address] [place], [address], 05/12/2021 11:58:04 05/12/20 21 05/12/2021 COMPR EHENS NAOMI METAB OLIC PANEL carbon dioxide 24 mmol/ L 22-30 Not Available [facility] (Lab) [address] [place], [address], 05/12/2021 11:58:04 05/12/20 21 05/12/2021 COMPR EHENS NAOMI METAB OLIC PANEL agap 15.9 mmol/ L 14-22 Not Available [facility] (Lab) [address] [place], [address], 05/12/2021 11:58:04 05/12/20 21 05/12/2021 COMPR EHENS NAOMI METAB OLIC PANEL glucose 167 mg/dL 70-99 high Not Available [facility] (Lab) [address] [place], [address], 05/12/2021 11:58:04 05/12/20 21 05/12/2021 COMPR EHENS NAOMI METAB OLIC PANEL BUN 19 mg/dL 8-19 Not Available [facility] (Lab) [address] [place], [address], 05/12/2021 11:58:04 05/12/20 21 05/12/2021 COMPR EHENS NAOMI METAB OLIC PANEL creatinine 1.02 mg/dL 0.66-1 .25 Not Available [facility] (Lab) [address] [place], [address], 05/12/2021 11:58:04 05/12/20 21 05/12/2021 COMPR EHENS NAOMI METAB OLIC PANEL GFR >60 Refer ence Range : [place] ge GFR Healt hy Adult : >60 mL/mi n/1.7 3 m2 Chron ic Kidne y Disea se: 15-60 mL/mi n/1.7 3 m2 Kidne y Failu re: <15/m L/min /1.73 m2 www.n iddk. nih.g ov MDRD study equat ion hasn' t been valid ated in child mali <18 yrs of age, pregn ant women , the elder ly >85 yrs of age, or in some racia l or ethni c subgr oups, such as Hispa nics. Outsi de the valid ated car eters , estim ated GFR is less accur ate requi ring clini aruna judgm ent on a case by case basis . Clini aruna inter preta tion for other races and ages must be made by the clini berkley . Futhe rmore , any of the limit ation s with the use of serum creat inine relat ed to nutri jessica l statu s or medic ation usage hasn' t accou nted for the MDRD Study equat ion. For perso ns <18 yrs of age, a pedia tric GFR calcu lator can be locat ed on the [facility] websi te: https ://edgar w.paige jones.o rg/pr ofess ional s/kdo qi/gf r_cal culat or Not Available [facility] (Lab) [address] [place], [address], 05/12/2021 11:58:04 05/12/20 21 05/12/2021 COMPR EHENS NAOMI METAB OLIC PANEL alkaline phosphatase 90 U/L 38-126 Not Available [facility] (Lab) [address] [place], [address], 05/12/2021 11:58:04 05/12/20 21 05/12/2021 COMPR EHENS NAOMI METAB OLIC PANEL alanine aminotransfe rase 29 U/L 0-50 Not Available [facility] (Lab) [address] [place], [address], 05/12/2021 11:58:04 05/12/20 21 05/12/2021 COMPR EHENS NAOMI METAB OLIC PANEL aspartate aminotransfe rase 34 U/L 15-46 Not Available [facility] (Lab) [address] [place], [address], 05/12/2021 11:58:04 05/12/20 21 05/12/2021 COMPR EHENS NAOMI METAB OLIC PANEL bilirubin, total 0.80 mg/dL 0.20-1 .30 Not Available [facility] (Lab) [address] [place], [address], 05/12/2021 11:58:04 05/12/20 21 05/12/2021 COMPR EHENS NAOMI METAB OLIC PANEL calcium 9.5 mg/dL 8.4-10 .2 Not Available [facility] (Lab) [address] [place], [address], 05/12/2021 11:58:04 05/12/20 21 05/12/2021 COMPR EHENS NAOMI METAB OLIC PANEL total protein 7.1 g/dL 6.3-8. 2 Not Available [facility] (Lab) [address] [place], [address], 05/12/2021 11:58:04 05/12/20 21 05/12/2021 COMPR EHENS NAOMI METAB OLIC PANEL albumin 4.4 g/dL 3.4-5. 0 Not Available [facility] (Lab) [address] [place], [address], 05/12/2021 11:58:04 05/12/20 21 05/12/2021 COMPR EHENS NAOMI METAB OLIC PANEL globulin 2.7 g/dL 2.6-4. 2 Not Available [facility] (Lab) [address] [place], [address], 05/12/2021 11:58:04 05/12/20 21 05/12/2021 COMPR EHENS NAOMI METAB OLIC PANEL A/G ratio 1.6 ratio 1.0-2. 0 Not Available [facility] (Lab) [address] [place], [address], 05/12/2021 11:58:04 05/25/20 21 05/25/2021 gluco , parrish carbone k, blood Blood Glucose: mg/dl 157 Not Available [facility] [address] [facility] [address], [place], [address], 05/25/2021 11:16:37 11/04/19 22 11/03/2021 MICRO ALBUM N RNDM W/CRE AT RATIO ur creat 77.20 mg/dL REFER ENCE RANGE NOT ESTAB LISHE D FOR RANDO M URINE CREAT ININE Not Available [facility] (Lab) [address] [place], [address], 11/03/2021 16:15:41 11/04/19 22 11/03/2021 MICRO ALBUM N RNDM W/CRE AT RATIO microalbumin , urine 6.7 mg/L 0.0-16 .6 Not Available [facility] (Lab) [address] [place], [address], 11/03/2021 16:15:41 11/04/19 22 11/03/2021 MICRO ALBUM N RNDM W/CRE AT RATIO microalbumin /creatinine ratio 9 mcg/m g 0-29 THE AMERI CAN DIABE JOSE ANTONIO ASSOC IATIO N DEFIN ES ABNOR MALIT IES IN ALBUM IN EXCRE TION FOLLO WS: CATEG ORY RESUL T (MCG/ MG CREAT ININE ) BETTIE L <30 MICRO ALBUM INURI A 30-29 9 CLINI ARUNA ALBUM INURI A > OR = 300 THE ADA RECOM MENDS THAT 2 OF 2 SPECI MENS COLLE CTED WITHI N A 3- TO 6-MON TH PERIO D BE ABNOR MAL BEFOR E CONSI ROLO G A PATIE NT TO HAVE CROSS ED ONE OF THESE DIAGN OSTIC THRES HOLDS . REFER ENCE: DIABE JOSE ANTONIO CARE, VOL. 26: S94-S 96, 2002 Not Available [facility] (Lab) [address] [place], [address], 11/03/2021 16:15:41 11/04/19 22 11/03/2021 HEMOG LOBIN A1C HA1C 6.7 % 4.0-6. 0 high Diabe jose antonio Vero Coulter navid: <5.7% Consi stent with absen ce of diabe jose antonio 5.7-6 .4% Consi stent with incre ased risk for diabe jose antonio (pred iabet es) >OR=6 .5% Consi stent with diabe jose antonio REFER ENCE: Diabe jose antonio Care 2016, 39(Hassan ppl.1 ):s13 -s22 Not Available [facility] (Lab) [address] [place], [address], 11/03/2021 13:37:08 11/04/19 22 11/03/2021 TSH thyroid-stim ulating hormone 3.340 uIU/m L 0.465- 4.680 Not Available [facility] (Lab) [address] [place], [address], 11/03/2021 11:19:29 11/04/19 22 11/03/2021 T4 FREE free T4 0.91 NG/dL 0.78-2 .19 Not Available [facility] (Lab) [address] [place], [address], 11/03/2021 11:13:09 11/04/19 22 11/03/2021 LIPID PANEL cholesterol 111 mg/dL 140-19 9 low NIH FABIOLA NSUS RECOM MENDA TION FOR AUGUSTUS STERO L: ADULT CHILD LOW RISK: <200 <170 BORDE RLINE : <200- 239 ----- HIGH RISK: >240 >200 Not Available [facility] (Lab) [address] [place], [address], 11/03/2021 10:59:14 11/04/19 22 11/03/2021 LIPID PANEL triglyceride s 103 mg/dL 0-150 NIH FABIOLA NSUS REPOR T RECOM MENDA TION FOR TRIGL YCERI KVNG: ADULT CHILD LOW RISK: <150 ----- BODER LINE: 150-1 99 ----- HIGH RISK: >200 ----- Not Available [facility] (Lab) [address] [place], [address], 11/03/2021 10:59:14 11/04/19 22 11/03/2021 LIPID PANEL HDL cholesterol 43 mg/dL 40- Not Available [facility] (Lab) [address] [place], [address], 11/03/2021 10:59:14 11/04/19 22 11/03/2021 LIPID PANEL LDL cholesterol, calculated 47 mg/dL 0-130 NIH FABIOLA NSUS REPOR T RECOM MENDA TIONS FOR LDL: ADULT CHILD LOW RISK <130 <110 (OPTI MAL LDL) <100 ----- BORDE RLINE : 130-1 59 ----- HIGH RISK: >160 >130 A TRIGL YCERI DE RESUL T >400 INVAL IDATE S THE CALCU LATIO N FOR LDL FRACT IONAT ION - THE LDL RESUL T WILL NOT BE REPOR PORTILLO. Not Available [facility] (Lab) [address] [place], [address], 11/03/2021 10:59:14 11/04/19 22 11/03/2021 COMPR EHENS NAOMI METAB OLIC PANEL sodium 139 mmol/ L 137-14 5 Not Available [facility] (Lab) [address] [place], [address], 11/03/2021 10:59:12 11/04/19 22 11/03/2021 COMPR EHENS NAOMI METAB OLIC PANEL potassium 4.4 mmol/ L 3.5-5. 1 Not Available [facility] (Lab) [address] [place], [address], 11/03/2021 10:59:12 11/04/19 22 11/03/2021 COMPR EHENS NAOMI METAB OLIC PANEL chloride 104 mmol/ L 98-107 Not Available [facility] (Lab) [address] [place], [address], 11/03/2021 10:59:12 11/04/19 22 11/03/2021 COMPR EHENS NAOMI METAB OLIC PANEL carbon dioxide 26 mmol/ L 22-30 Not Available [facility] (Lab) [address] [place], [address], 11/03/2021 10:59:12 11/04/19 22 11/03/2021 COMPR EHENS NAOMI METAB OLIC PANEL anion gap 13.4 mmol/ L 14-22 low Not Available [facility] (Lab) [address] [place], [address], 11/03/2021 10:59:12 11/04/19 22 11/03/2021 COMPR EHENS NAOMI METAB OLIC PANEL glucose 138 mg/dL 70-99 high Not Available [facility] (Lab) [address] [place], [address], 11/03/2021 10:59:12 11/04/19 22 11/03/2021 COMPR EHENS NAOMI METAB OLIC PANEL BUN 15 mg/dL 8-19 Not Available [facility] (Lab) [address] [place], [address], 11/03/2021 10:59:12 11/04/19 22 11/03/2021 COMPR EHENS NAOMI METAB OLIC PANEL creatinine 0.92 mg/dL 0.66-1 .25 Not Available [facility] (Lab) [address] [place], [address], 11/03/2021 10:59:12 11/04/19 22 11/03/2021 COMPR EHENS NAOMI METAB OLIC PANEL GFR >60 Refer ence Range : [place] ge GFR Healt hy Adult : >60 mL/mi n/1.7 3 m2 Chron ic Kidne y Disea se: 15-60 mL/mi n/1.7 3 m2 Kidne y Failu re: <15/m L/min /1.73 m2 www.n iddk. nih.g ov The MDRD study equat ion has not been valid ated in child mali <18 years of age; pregn ant women ; the elder ly >85 years of age; or in some racia l or ethni c subgr oups, such as Hispa nics. Outsi de the valid ated car eters , estim ated GFR is less accur ate, requi ring clini aruna judgm ent on a case- by-ca se basis . Clini aruna inter preta tion for other races and ages must be made by the clini berkley. The MDRD study equat ion has not been valid ated for the evalu ation of serum creat inine relat ed to nutri jessica l statu s or medic ation usage . For perso ns <18 years of age, a pedia tric GFR calcu lator is avail able on the [facility] websi te: https ://edgar cornejo.paige jones.betty rg/pr ofess ional s/kdo qi/gf r_cal culat or Not Available [facility] (Lab) [address] [place], [address], 11/03/2021 10:59:12 11/04/19 22 11/03/2021 COMPR EHENS NAOMI METAB OLIC PANEL alkaline phosphatase 81 U/L 38-126 Not Available [facility] (Lab) [address] [place], [address], 11/03/2021 10:59:12 11/04/19 22 11/03/2021 COMPR EHENS NAOMI METAB OLIC PANEL alanine aminotransfe rase 26 U/L 0-50 Not Available [facility] (Lab) [address] [place], [address], 11/03/2021 10:59:12 11/04/19 22 11/03/2021 COMPR EHENS NAOMI METAB OLIC PANEL aspartate aminotransfe rase 28 U/L 15-46 Not Available [facility] (Lab) [address] [place], [address], 11/03/2021 10:59:12 11/04/19 22 11/03/2021 COMPR EHENS NAOMI METAB OLIC PANEL bilirubin, total 0.70 mg/dL 0.20-1 .30 Not Available [facility] (Lab) [address] [place], [address], 11/03/2021 10:59:12 11/04/19 22 11/03/2021 COMPR EHENS NAOMI METAB OLIC PANEL calcium 9.6 mg/dL 8.4-10 .2 Not Available [facility] (Lab) [address] [place], [address], 11/03/2021 10:59:12 11/04/19 22 11/03/2021 COMPR EHENS NAOMI METAB OLIC PANEL total protein 7.1 g/dL 6.3-8. 2 Not Available [facility] (Lab) [address] [place], [address], 11/03/2021 10:59:12 11/04/19 22 11/03/2021 COMPR EHENS NAOMI METAB OLIC PANEL albumin 4.3 g/dL 3.4-5. 0 Not Available [facility] (Lab) [address] [place], [address], 11/03/2021 10:59:12 11/04/19 22 11/03/2021 COMPR EHENS NAOMI METAB OLIC PANEL globulin 2.8 g/dL 2.6-4. 2 Not Available [facility] (Lab) [address] [place], [address], 11/03/2021 10:59:12 11/04/19 22 11/03/2021 COMPR EHENS NAOMI METAB OLIC PANEL A/G ratio 1.5 ratio 1.0-2. 0 Not Available [facility] (Lab) [address] [place], [address], 11/03/2021 10:59:12 05/22/20 22 05/22/2022 HEMOG LOBIN A1C HA1C 7.0 % 4.0-6. 0 high Diabe jose antonio Scree jose Crite navid: <5.7% Consi stent with absen ce of diabe jose antonio 5.7-6 .4% Consi stent with incre ased risk for diabe jose antonio (pred iabet es) >OR=6 .5% Consi stent with diabe jose antonio REFER ENCE: Diabe jose antonio Care 2016, 39(Hassan ppl.1 ):s13 -s22 Not Available [facility] (Lab) [address] [place], [address], 05/22/2022 15:09:18 05/22/20 22 05/22/2022 LIPID PANEL cholesterol 140 mg/dL 140-19 9 NIH FABIOLA NSUS RECOM MENDA TION FOR AUGUSTUS STERO L: ADULT CHILD LOW RISK: <200 <170 BORDE RLINE : <200- 239 ----- HIGH RISK: >240 >200 Not Available [facility] (Lab) [address] [place], [address], 05/22/2022 13:48:45 05/22/20 22 05/22/2022 LIPID PANEL triglyceride s 158 mg/dL 0-150 high NIH FABIOLA NSUS REPOR T RECOM MENDA TION FOR TRIGL YCERI KVNG: ADULT CHILD LOW RISK: <150 ----- BODER LINE: 150-1 99 ----- HIGH RISK: >200 ----- Not Available [facility] (Lab) [address] [place], [address], 05/22/2022 13:48:45 05/22/20 22 05/22/2022 LIPID PANEL HDL cholesterol 45 mg/dL 40- Not Available [facility] (Lab) [address] [place], [address], 05/22/2022 13:48:45 05/22/20 22 05/22/2022 LIPID PANEL LDL cholesterol, calculated 63 mg/dL 0-130 NIH FABIOLA NSUS REPOR T RECOM MENDA TIONS FOR LDL: ADULT CHILD LOW RISK <130 <110 (OPTI MAL LDL) <100 ----- BORDE RLINE : 130-1 59 ----- HIGH RISK: >160 >130 A TRIGL YCERI DE RESUL T >400 INVAL IDATE S THE CALCU LATIO N FOR LDL FRACT IONAT ION - THE LDL RESUL T WILL NOT BE REPOR PORTILLO. Not Available [facility] (Lab) [address] [place], [address], 05/22/2022 13:48:45 05/22/20 22 05/22/2022 COMPR EHENS NAOMI METAB OLIC PANEL sodium 143 mmol/ L 137-14 5 Not Available [facility] (Lab) [address], [place], [address], 05/22/2022 13:48:35 05/22/20 22 05/22/2022 COMPR EHENS NAOMI METAB OLIC PANEL potassium 4.3 mmol/ L 3.5-5. 1 Not Available [facility] (Lab) [address] [place], [address], 05/22/2022 13:48:35 05/22/20 22 05/22/2022 COMPR EHENS NAOMI METAB OLIC PANEL chloride 104 mmol/ L 98-107 Not Available [facility] (Lab) [address] [place], [address], 05/22/2022 13:48:35 05/22/20 22 05/22/2022 COMPR EHENS NAOMI METAB OLIC PANEL carbon dioxide 25 mmol/ L 22-30 Not Available [facility] (Lab) [address] [place], [address], 05/22/2022 13:48:35 05/22/20 22 05/22/2022 COMPR EHENS NAOMI METAB OLIC PANEL anion gap 18.3 mmol/ L 14-22 Not Available [facility] (Lab) [address] [place], [address], 05/22/2022 13:48:35 05/22/20 22 05/22/2022 COMPR EHENS NAOMI METAB OLIC PANEL glucose 165 mg/dL 70-99 high Not Available [facility] (Lab) [address] [place], [address], 05/22/2022 13:48:35 05/22/20 22 05/22/2022 COMPR EHENS NAOMI METAB OLIC PANEL BUN 21 mg/dL 8-19 high Not Available [facility] (Lab) [address] [place], [address], 05/22/2022 13:48:35 05/22/20 22 05/22/2022 COMPR EHENS NAOMI METAB OLIC PANEL creatinine 1.06 mg/dL 0.66-1 .25 Not Available [facility] (Lab) [address] [place], [address], 05/22/2022 13:48:35 05/22/20 22 05/22/2022 COMPR EHENS NAOMI METAB OLIC PANEL GFR >60 Refer ence Range : [place] ge GFR Healt hy Adult : >60 mL/mi n/1.7 3 m2 Chron ic Kidne y Disea se: 15-60 mL/mi n/1.7 3 m2 Kidne y Failu re: <15/m L/min /1.73 m2 www.n iddk. nih.g ov The MDRD study equat ion has not been valid ated in child mali <18 years of age; pregn ant women ; the elder ly >85 years of age; or in some racia l or ethni c subgr oups, such as Hispa nics. Outsi de the valid ated car eters , estim ated GFR is less accur ate, requi ring clini aruna judgm ent on a case- by-ca se basis . Clini aruna inter preta tion for other races and ages must be made by the clini berkley. The MDRD study equat ion has not been valid ated for the evalu ation of serum creat inine relat ed to nutri jessica l statu s or medic ation usage . For perso ns <18 years of age, a pedia tric GFR calcu latcody is avail able on the [facility] websi te: https ://edgar jones.o chrissy/pr ofess ional s/kdo qi/gf r_cal culat or Not Available [facility] (Lab) [address] [place], [address], 05/22/2022 13:48:35 05/22/20 22 05/22/2022 COMPR EHENS NAOMI METAB OLIC PANEL alkaline phosphatase 100 U/L 38-126 Not Available [facility] (Lab) [address] [place], [address], 05/22/2022 13:48:35 05/22/20 22 05/22/2022 COMPR EHENS NAOMI METAB OLIC PANEL alanine aminotransfe rase 66 U/L 0-50 high Not Available [facility] (Lab) [address] [place], [address], 05/22/2022 13:48:35 05/22/20 22 05/22/2022 COMPR EHENS NAOMI METAB OLIC PANEL aspartate aminotransfe rase 43 U/L 15-46 Not Available [facility] (Lab) [address] [place], [address], 05/22/2022 13:48:35 05/22/20 22 05/22/2022 COMPR EHENS NAOMI METAB OLIC PANEL bilirubin, total 0.80 mg/dL 0.20-1 .30 Not Available [facility] (Lab) [address] [place], [address], 05/22/2022 13:48:35 05/22/20 22 05/22/2022 COMPR EHENS NAOMI METAB OLIC PANEL calcium 10.0 mg/dL 8.4-10 .2 Not Available [facility] (Lab) [address] [place], [address], 05/22/2022 13:48:35 05/22/20 22 05/22/2022 COMPR EHENS NAOMI METAB OLIC PANEL total protein 7.5 g/dL 6.3-8. 2 Not Available [facility] (Lab) [address] [place], [address], 05/22/2022 13:48:35 05/22/20 22 05/22/2022 COMPR EHENS NAOMI METAB OLIC PANEL albumin 4.7 g/dL 3.4-5. 0 Not Available [facility] (Lab) [address] [place], [address], 05/22/2022 13:48:35 05/22/20 22 05/22/2022 COMPR EHENS NAOMI METAB OLIC PANEL globulin 2.8 g/dL 2.6-4. 2 Not Available [facility] (Lab) [address] [place], [address], 05/22/2022 13:48:35 05/22/20 22 05/22/2022 COMPR EHENS NAOMI METAB OLIC PANEL A/G ratio 1.7 ratio 1.0-2. 0 Not Available [facility] (Lab) [address] [place], [address], 05/22/2022 13:48:35 05/22/20 22 05/22/2022 CBC/C OMPLE TE BLD COUNT W/DIF F white blood cells 9.2 x10'3 /uL 4.2-10 .8 Not Available [facility] (Lab) [address] [place], [address], 05/22/2022 13:19:02 05/22/20 22 05/22/2022 CBC/C OMPLE TE BLD COUNT W/DIF F red blood cells 4.99 x10'6 /uL 4.10-5 .80 Not Available [facility] (Lab) [address] [place], [address], 05/22/2022 13:19:02 05/22/20 22 05/22/2022 CBC/C OMPLE TE BLD COUNT W/DIF F hemoglobin 15.7 g/dL 13.2-1 7.0 Not Available [facility] (Lab) [address] [place], [address], 05/22/2022 13:19:02 05/22/20 22 05/22/2022 CBC/C OMPLE TE BLD COUNT W/DIF F hematocrit 47.6 % 39.3-5 0.0 Not Available [facility] (Lab) [address] [place], [address], 05/22/2022 13:19:02 05/22/20 22 05/22/2022 CBC/C OMPLE TE BLD COUNT W/DIF F mean red cell volume 95.4 fL 80.0-9 7.0 Not Available [facility] (Lab) [address] [place], [address], 05/22/2022 13:19:02 05/22/20 22 05/22/2022 CBC/C OMPLE TE BLD COUNT W/DIF F mean red cell hemoglobin 31.5 pg 27.0-3 3.0 Not Available [facility] (Lab) [address] [place], [address], 05/22/2022 13:19:02 05/22/20 22 05/22/2022 CBC/C OMPLE TE BLD COUNT W/DIF F mean RBC HGB concentratio n 33.0 g/dL 31.0-3 6.0 Not Available [facility] (Lab) [address] [place], [address], 05/22/2022 13:19:02 05/22/20 22 05/22/2022 CBC/C OMPLE TE BLD COUNT W/DIF F red cell distribution width 13.0 % 11.8-1 5.5 Not Available [facility] (Lab) [address] [facility] [place] [address], 05/22/2022 13:19:02 05/22/20 22 05/22/2022 CBC/C OMPLE TE BLD COUNT W/DIF F platelets 303 x10'3 /uL 150-40 0 Not Available [facility] (Lab) [address] [place], [address], 05/22/2022 13:19:02 05/22/20 22 05/22/2022 CBC/C OMPLE TE BLD COUNT W/DIF F mean platelet volume 9.7 fL 9.0-12 .4 Not Available [facility] (Lab) [address] [place], [address], 05/22/2022 13:19:02 05/22/20 22 05/22/2022 CBC/C OMPLE TE BLD COUNT W/DIF F neutrophils 47.1 % 39.0-7 2.0 Not Available [facility] (Lab) [address] [place], [address], 05/22/2022 13:19:02 05/22/20 22 05/22/2022 CBC/C OMPLE TE BLD COUNT W/DIF F lymphocytes 43.4 % 16.0-4 7.0 Not Available [facility] (Lab) [address] [place], [address], 05/22/2022 13:19:02 05/22/20 22 05/22/2022 CBC/C OMPLE TE BLD COUNT W/DIF F monocytes 7.4 % 5.0-12 .0 Not Available [facility] (Lab) [address] [place], [address], 05/22/2022 13:19:02 05/22/20 22 05/22/2022 CBC/C OMPLE TE BLD COUNT W/DIF F eosinophils 1.1 % 1.0-7. 0 Not Available [facility] (Lab) [address] [place], [address], 05/22/2022 13:19:02 05/22/2005/22/2022 CBC/C OMPLE TE BLD COUNT W/DIF F basophils 0.7 % 0.0-2. 0 Not Available [facility] (Lab) [address] [facility] [place], [address], 05/22/2022 13:19:02 05/22/20 22 05/22/2022 CBC/C OMPLE TE BLD COUNT W/DIF F immature granulocytes 0.3 % 0.00-0 .50 Not Available [facility] (Lab) [address] [facility] [place], [address], 05/22/2022 13:19:02 05/22/2005/22/2022 CBC/C OMPLE TE BLD COUNT W/DIF F neutrophils, absolute count 4.33 x10'3 /uL 1.5-8. 0 Not Available [facility] (Lab) [address] [place], [address], 05/22/2022 13:19:02 05/22/20 22 05/22/2022 CBC/C OMPLE TE BLD COUNT W/DIF F lymphocytes, absolute count 3.99 x10'3 /uL 1.07-3 .43 high Not Available [facility] (Lab) [address] [place], [address], 05/22/2022 13:19:02 05/22/20 22 05/22/2022 CBC/C OMPLE TE BLD COUNT W/DIF F monocytes, absolute count 0.68 x10'3 /uL 0.29-0 .99 Not Available [facility] (Lab) [address] [place], [address], 05/22/2022 13:19:02 05/22/20 22 05/22/2022 CBC/C OMPLE TE BLD COUNT W/DIF F eosinophils, absolute count 0.10 x10'3 /uL 0.02-0 .53 Not Available [facility] (Lab) [address] [place], [address], 05/22/2022 13:19:02 05/22/20 22 05/22/2022 CBC/C OMPLE TE BLD COUNT W/DIF F basophils, absolute count 0.06 x10'3 /uL 0.01-0 .08 Not Available [facility] (Lab) [address] [place], [address], 05/22/2022 13:19:02 05/22/20 22 05/22/2022 CBC/C OMPLE TE BLD COUNT W/DIF F immature granulocytes ,absolute 0.03 x10'3 /uL 0.00-0 .05 Not Available [facility] (Lab) [address] [place], [address], 05/22/2022 13:19:02 05/22/20 22 05/22/2022 CBC/C OMPLE TE BLD COUNT W/DIF F nucleated red blood cells 0.0 % -0 Not Available [facility] (Lab) [address] [place], [address], 05/22/2022 13:19:02 05/22/20 22 05/22/2022 CBC/C OMPLE TE BLD COUNT W/DIF F NRBC# 0.00 x10'3 /uL Not Available [facility] (Lab) [address] [place], [address], 05/22/2022 13:19:02 05/22/20 22 05/22/2022 PSA SCREE N PSA medicare screen 1.23 NG/mL 0.00-4 .00 Not Available [facility] (Lab) [address] [place], [address], 05/22/2022 12:36:35 05/22/2005/22/2022 TSH thyroid-stim ulating hormone 2.820 uIU/m L 0.465- 4.680 Not Available [facility] (Lab) [address] [place], [address], 05/22/2022 12:36:32 05/22/20 22 05/22/2022 T4 FREE free T4 0.96 NG/dL 0.78-2 .19 Not Available [facility] (Lab) [address] [place], [address], 05/22/2022 12:21:02 05/22/20 22 05/22/2022 MICRO ALBUM N RNDM W/CRE AT RATIO ur creat 128.95 mg/dL REFER ENCE RANGE NOT ESTAB LISHE D FOR RANDO M URINE CREAT ININE Not Available [facility] (Lab) [address] [place], [address], 05/22/2022 11:43:05 05/22/20 22 05/22/2022 MICRO ALBUM N RNDM W/CRE AT RATIO microalbumin , urine 10.7 mg/L 0.0-16 .6 Not Available [facility] (Lab) [address] [place], [address], 05/22/2022 11:43:05 05/22/20 22 05/22/2022 MICRO ALBUM N RNDM W/CRE AT RATIO microalbumin /creatinine ratio 8 mcg/m g 0-29 THE AMERI CAN DIABE JOSE ANTONIO ASSOC IATIO N DEFIN ES ABNOR MALIT IES IN ALBUM IN EXCRE TION FOLLO WS: CATEG ORY RESUL T (MCG/ MG CREAT ININE ) BETTIE L <30 MICRO ALBUM INURI A 30-29 9 CLINI ARUNA ALBUM INURI A > OR = 300 THE ADA RECOM MENDS THAT 2 OF 2 SPECI MENS COLLE CTED WITHI N A 3- TO 6-MON TH PERIO D BE ABNOR MAL BEFOR E CONSI ROLO G A PATIE NT TO HAVE CROSS ED ONE OF THESE DIAGN OSTIC THRES HOLDS . REFER ENCE: DIABE JOSE ANTONIO CARE, VOL. 26: S94-S 96, JULUA 2002 Not Available [facility] (Lab) [address] [place], [address], 05/22/2022 11:43:05 06/26/20 22 06/26/2022 CBC/C OMPLE TE BLD COUNT W/DIF F white blood cells 7.8 x10'3 /uL 4.2-10 .8 Not Available [facility] (Lab) [address] [place], [address], 06/26/2022 11:08:23 06/26/20 22 06/26/2022 CBC/C OMPLE TE BLD COUNT W/DIF F red blood cells 4.62 x10'6 /uL 4.10-5 .80 Not Available [facility] (Lab) [address] [place], [address], 06/26/2022 11:08:23 06/26/20 22 06/26/2022 CBC/C OMPLE TE BLD COUNT W/DIF F hemoglobin 14.9 g/dL 13.2-1 7.0 Not Available [facility] (Lab) [address] [place], [address], 06/26/2022 11:08:23 06/26/20 22 06/26/2022 CBC/C OMPLE TE BLD COUNT W/DIF F hematocrit 44.5 % 39.3-5 0.0 Not Available [facility] (Lab) [address] [place], [address], 06/26/2022 11:08:23 06/26/20 22 06/26/2022 CBC/C OMPLE TE BLD COUNT W/DIF F mean red cell volume 96.3 fL 80.0-9 7.0 Not Available [facility] (Lab) [address] [place], [address], 06/26/2022 11:08:23 06/26/20 22 06/26/2022 CBC/C OMPLE TE BLD COUNT W/DIF F mean red cell hemoglobin 32.3 pg 27.0-3 3.0 Not Available [facility] (Lab) [address] [facility] [place], [address], 06/26/2022 11:08:23 06/26/20 22 06/26/2022 CBC/C OMPLE TE BLD COUNT W/DIF F mean RBC HGB concentratio n 33.5 g/dL 31.0-3 6.0 Not Available [facility] (Lab) [address] [place], [address], 06/26/2022 11:08:23 06/26/20 22 06/26/2022 CBC/C OMPLE TE BLD COUNT W/DIF F red cell distribution width 13.2 % 11.8-1 5.5 Not Available [facility] (Lab) [address] [place], [address], 06/26/2022 11:08:23 06/26/20 22 06/26/2022 CBC/C OMPLE TE BLD COUNT W/DIF F platelets 308 x10'3 /uL 150-40 0 Not Available [facility] (Lab) [address] [place], [address], 06/26/2022 11:08:23 06/26/20 22 06/26/2022 CBC/C OMPLE TE BLD COUNT W/DIF F mean platelet volume 10.4 fL 9.0-12 .4 Not Available [facility] (Lab) [address] [place], [address], 06/26/2022 11:08:23 06/26/20 22 06/26/2022 CBC/C OMPLE TE BLD COUNT W/DIF F neutrophils 52.1 % 39.0-7 2.0 Not Available [facility] (Lab) [address] [place], [address], 06/26/2022 11:08:23 06/26/20 22 06/26/2022 CBC/C OMPLE TE BLD COUNT W/DIF F lymphocytes 40.2 % 16.0-4 7.0 Not Available [facility] (Lab) [address] [place], [address], 06/26/2022 11:08:23 06/26/20 22 06/26/2022 CBC/C OMPLE TE BLD COUNT W/DIF F monocytes 5.8 % 5.0-12 .0 Not Available [facility] (Lab) [address] [place], [address], 06/26/2022 11:08:23 06/26/20 22 06/26/2022 CBC/C OMPLE TE BLD COUNT W/DIF F eosinophils 1.0 % 1.0-7. 0 Not Available [facility] (Lab) [address] [place], [address], 06/26/2022 11:08:23 06/26/20 22 06/26/2022 CBC/C OMPLE TE BLD COUNT W/DIF F basophils 0.6 % 0.0-2. 0 Not Available [facility] (Lab) [address] [place], [address], 06/26/2022 11:08:23 06/26/20 22 06/26/2022 CBC/C OMPLE TE BLD COUNT W/DIF F immature granulocytes 0.3 % 0.00-0 .50 Not Available [facility] (Lab) [address] [place], [address], 06/26/2022 11:08:23 06/26/20 22 06/26/2022 CBC/C OMPLE TE BLD COUNT W/DIF F neutrophils, absolute count 4.04 x10'3 /uL 1.5-8. 0 Not Available [facility] (Lab) [address] [place], [address], 06/26/2022 11:08:23 06/26/20 22 06/26/2022 CBC/C OMPLE TE BLD COUNT W/DIF F lymphocytes, absolute count 3.12 x10'3 /uL 1.07-3 .43 Not Available [facility] (Lab) [address] [place], [address], 06/26/2022 11:08:23 06/26/20 22 06/26/2022 CBC/C OMPLE TE BLD COUNT W/DIF F monocytes, absolute count 0.45 x10'3 /uL 0.29-0 .99 Not Available [facility] (Lab) [address] [place], [address], 06/26/2022 11:08:23 06/26/20 22 06/26/2022 CBC/C OMPLE TE BLD COUNT W/DIF F eosinophils, absolute count 0.08 x10'3 /uL 0.02-0 .53 Not Available [facility] (Lab) [address] [place], [address], 06/26/2022 11:08:23 06/26/20 22 06/26/2022 CBC/C OMPLE TE BLD COUNT W/DIF F basophils, absolute count 0.05 x10'3 /uL 0.01-0 .08 Not Available [facility] (Lab) [address] [place], [address], 06/26/2022 11:08:23 06/26/20 22 06/26/2022 CBC/C OMPLE TE BLD COUNT W/DIF F immature granulocytes ,absolute 0.02 x10'3 /uL 0.00-0 .05 Not Available [facility] (Lab) [address] [place], [address], 06/26/2022 11:08:23 06/26/20 22 06/26/2022 CBC/C OMPLE TE BLD COUNT W/DIF F nucleated red blood cells 0.0 % -0 Not Available [facility] (Lab) [address] [place], [address], 06/26/2022 11:08:23 06/26/20 22 06/26/2022 CBC/C OMPLE TE BLD COUNT W/DIF F NRBC# 0.00 x10'3 /uL Not Available [facility] (Lab) [address] [place], [address], 06/26/2022 11:08:23 01/04/20 23 01/03/2023 home sleep study No observ ation record ed. [email or web address] [facility] [address] , [place], [address], 01/04/2023 11:29:56 Result Notes None recorded. Problems Name Problem SNOMED Code Status Onset Date Resolution Date Notes Provider Name and Address Organization Details Recorded Time Anxiety 37592895 Active Not Available [facility] 3 04:54:51 Hyperglyce annie 21992037 Completed Not Available [facility] 3 04:54:51 Human immunodefi ciency virus infection 81427996 Active Not Available [facility] 3 04:54:51 Type 2 diabetes mellitus 45854431 Active 2018 Not Available [facility] 3 04:54:51 Type 2 diabetes mellitus without complicati on 887138449 Active 2022 DUC Arguello [address] [facility], [address], [address] , [employer] 3 19:18:10 Hyperlipid emia 63611186 Active 2022 DUC Arguello [address] [facility], [place] [address], [place], [address] , [employer] 3 19:18:15 Essential hypertensi on 05583128 Active 2022 DUC Arguello [address], [place] [address], [place], [address] , [employer] 3 19:18:20 Onychomyco sis of toenails 058446420 Active 2022 DUC Arguello [address] [facility], [facility] [address], [place], [address] , [facility] [employer] [facility] 3 19:18:54 Sleep apnea 58825500 Active 2022 DUC Arguello [address] [facility], [place] [address], [place], [address] , [facility] [employer] [facility] 3 10:22:20 Malignant neoplasm of prostate 925990296 Active 2022 DUC Arguello [address] [facility], [place] [address], [place], [address] , [facility] [employer] [facility] 3 14:48:01 Problem Notes None recorded. Procedures Surgical History Date Name Laterality Status Provider Name and Address Organization Details Recorded Time Colonoscopy completed Not Available [facility] 09/05/2022 04:44:13 Imaging Results None recorded. Procedure Notes None recorded. Medical Equipment None Reported. Allergies Allergen ID Allergen Name Allergen Category Reaction Reaction Severity Criticality Documentation Date Start Date Code Code System Note Provider Name and Address Organization Details Recorded Time 9061 propoxyph magdaleno hydrochlo ride medicatio n other Not available Not available 09/05/2022 17540 RxNorm Not Available [facility] 3 05:07:48 Medications Name Sig Start Date Stop Date Status Note LastModified by Organization Details LastModified Time amoxicillin 500 mg capsule 03/31 completed Not Available Not Available Not Available atorvastati n 40 mg tablet TAKE 1 TABLET BY MOUTH EVERY DAY 05/22 completed Not Available Not Available Not Available metformin 500 mg tablet TAKE 2 TABLETS TWICE A DAY active Not Available Not Available No t Available atorvastati n 20 mg tablet TAKE 1 TABLET BY MOUTH EVERY DAY active Not Available Not Available No t Available trazodone 50 mg tablet Take 1 tablet every day by oral route at bedtime. active Not Available Not Available No t Available lisinopril 20 mg tablet TAKE 1 TABLET BY MOUTH EVERY DAY active Not Available Not Available No t Available isosorbide mononitrate ER 30 mg tablet,exte nded release 24 hr TAKE 1 TABLET BY MOUTH EVERY DAY active Not Available Not Available No t Available clopidogrel 75 mg tablet 04/24 completed Not Available Not Available Not Available lamivudine 150 mg-zidovudi ne 300 mg tablet Take 1 tablet twice a day by oral route for 90 days. 03/20 completed Not Available Not Available Not Available terbinafine HCl 250 mg tablet TAKE 1 TABLET BY MOUTH EVERY DAY 05/22 completed Not Available Not Available Not Available alprazolam 0.5 mg tablet active Not Available Not Available Not Available citalopram 20 mg tablet Take 1 tablet every day by oral route. 09/17 completed Not Available Not Available Not Available trazodone 100 mg tablet Take 1 tablet every day by oral route. 09/27 completed Not Available Not Available Not Available OneTouch Ultra Test strips active Not Available Not Available Not Available zidovudine 300 mg tablet 09/16 completed Not Available Not Available Not Available nitroglycer in 0.4 mg sublingual tablet PRN active Not Available Not Available Not Available aspirin 81 mg chewable tablet Chew 1 tablet every day by oral route. 2014 active Not Available Not Available Not Avai lable metoprolol succinate ER 25 mg tablet,exte nded release 24 hr TAKE 1 TABLET (25 MG TOTAL) BY MOUTH DAILY. active Not Available Not Available No t Available lamivudine 150 mg tablet 09/16 completed Not Available Not Available Not Available Viracept 625 mg tablet Take 2 tablets twice a day by oral route for 90 days. 03/31 completed Not Available Not Available Not Available OneTozoya Byrd 33 gauge active Not Available Not Available Not Available Genvoya 150 mg-150 mg-200 mg-10 mg tablet active Not Available Not Available Not Available Flucelvax Quad 5989-0529 (PF) 60 mcg (15 mcg x 4)/0.5 mL IM syringe active Not Available Not Available N ot Available Ozempic 0.25 mg or 0.5 mg (2 mg/1.5 mL) subcutaneou s pen injector INJECT 0.5MG SUBCUTANE OUSLYWEEK LY 05/22 completed Not Available Not Available Not Available Ozempic 0.25 mg or 0.5 mg (2 mg/3 mL) subcutaneou s pen injector Inject 0.5 mg every week by subcutane ous route. active Not Available Not Available No t Available Vitals Date Recorded Body mass index (BMI) Body height Oxygen saturation Oxygen saturation in Arterial blood by Pulse oximetry Heart rate Body temperature Body weight Systolic And Diastolic Provider Name and Address Organization Details Last Updated DateTime 2 25.8 kg/m2 172.72 cm 97 % 97 % 94 /min 97.6 [degF] 70686.7 g 130/82 mm[Hg] Not Available [facility] 3 04:47:03 Date Recorded Body height Body mass index (BMI) Body weight Body temperature Heart rate Oxygen saturation Oxygen saturation in Arterial blood by Pulse oximetry Systolic And Diastolic Provider Name and Address Organization Details Last Updated DateTime 3 172.72 cm 26 kg/m2 88647.3 g 97.6 [degF] 78 /min 98 % 98 % 114/80 mm[Hg] Genevieve Walker MA [facility] [employer] [facility] 3 10:04:59 Date Recorded Body mass index (BMI) Body height Oxygen saturation Oxygen saturation in Arterial blood by Pulse oximetry Heart rate Body temperature Body weight Systolic And Diastolic Provider Name and Address Organization Details Last Updated DateTime 2 26 kg/m2 172.72 cm 97 % 97 % 102 /min 97.4 [degF] 43488.3 g 118/82 mm[Hg] Not Available [facility] 3 04:47:03 Date Recorded Body height Body mass index (BMI) Body weight Body temperature Heart rate Oxygen saturation Oxygen saturation in Arterial blood by Pulse oximetry Systolic And Diastolic Provider Name and Address Organization Details Last Updated DateTime 3 172.72 cm 25.7 kg/m2 39897.1 1 g 98 [degF] 78 /min 98 % 98 % 114/74 mm[Hg] Genevieve Walker MA [facility] [employer] [facility] 3 14:41:24 Date Recorded Body mass index (BMI) Body height Oxygen saturation Oxygen saturation in Arterial blood by Pulse oximetry Heart rate Body temperature Body weight Systolic And Diastolic Provider Name and Address Organization Details Last Updated DateTime 1 26 kg/m2 172.72 cm 98 % 98 % 89 /min 97.4 [degF] 27649.3 g 122/82 mm[Hg] Not Available [facility] 04:47:03 Social History Question Answer Notes LastModified by Organizat ion Details LastModified Time Tobacco Smoking Status Never Smoker Not Available [facility] 09/05/2022 04:19:39 Do You Have An Advance Directive? No [id number] Information not available 09/05/2022 What Is Your Level Of Caffeine Consumption? Heavy [id number] Information not available 09/05/2022 In The 14 Days Before Symptom Onset, Have You Had Close Contact With A Laboratory-confir med COVID-19 While That Case Was Ill? No [id number] Information not available 09/05/2022 In The 14 Days Before Symptom Onset, Have You Had Close Contact With A Person Who Is Under Investigation For COVID-19 While That Person Was Ill? No [id number] Information not available 09/05/2022 What Type Of Diet Are You Following? REGULAR [id number] Information not available 09/05/2022 Which Illicit Or Recreational Drugs Have You Used? None [id number] Information not available 09/05/2022 What Is The Highest Grade Or Level Of School You Have Completed Or The Highest Degree You Have Received? [id number] [id number] Information not available 09/05/2022 Have There Been Any Changes To Your Family Or Social Situation? No MIGRATION.55082 [id number] Information not available 09/05/2022 What Is The Fluoride Status Of Your Home? Unknown MIGRATION.64353 94461 Information not available 09/05/2022 Are There Any Guns Present In Your Home? No MIGRATION.69256 82637 Information not available 09/05/2022 Do You Use Insect Repellent Routinely? No MIGRATION.15848 55607 Information not available 09/05/2022 Where Do You Live? [place] MIGRATION.06763 39878 Information not available 09/05/2022 Do You Have A Medical Power Of Title Abstractor? No MIGRATION.50246 53592 Information not available 09/05/2022 What Was The Date Of Your Most Recent Tobacco Screening? 05/22/2023 [email or web address] Information not available 05/22/2023 Do You Have Any Pets? No MIGRATION.11928 14267 Information not available 09/05/2022 What Is Your Relationship Status? Single MIGRATION.95830 25315 Information not available 09/05/2022 Do You Use Your Seat Belt Or Car Seat Routinely? Yes MIGRATION.95509 18794 Information not available 09/05/2022 Do You Have Smoke And Carbon Monoxide Detectors In Your Home? Yes MIGRATION.74495 79204 Information not available 09/05/2022 Are You Passively Exposed To Smoke? No MIGRATION.56912 09202 Information not available 09/05/2022 Are There Any Smokers In Your House? No MIGRATION.49101 23481 Information not available 09/05/2022 Do You Use Sunscreen Routinely? No MIGRATION.90373 59122 Information not available 09/05/2022 Have You Recently Traveled Abroad? No MIGRATION.07222 69601 Information not available 09/05/2022 Do You Have Any Dietary Restrictions? No MIGRATION.37184 24769 Information not available 09/05/2022 Sex: Unknown Functional Status Question Answer Note LastModified by Pheedoat ion Details LastModified Time Do you use any illicit or recreational drugs? No MIGRATION.391916 4381 Information not available 09/05/2022 What is your level of alcohol consumption? Occasional MIGRATION.811725 5359 Information not available 09/05/2022 Do you or have you ever used smokeless tobacco? 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 Never used electronic cigarettes MIGRATION.155666 1547 Information not available 09/05/2022 What is your exercise level? Moderate MIGRATION.358600 2070 Information not available 09/05/2022 Mental Status Question Answer Note LastModified by Organizat ion Details LastModified Time Do you feel stressed (tense, restless, nervous, or anxious, or unable to sleep at night)? [id number] MIGRATION.[id number] Information not available 09/05/2022 Family History Nothing Reported. Medical History Condition Response HAVE YOU BEEN HOSPITALIZED OR SEEN IN [facility] IN THE PAST YEAR ? N Immunizations Vaccine Type Date Status Note Provider [facility] e and Address Organization Details Recorded Time Pneumococcal conjugate PCV 13 5 completed Not Available [facility] 09/05/2022 05:07:10 COVID-19, mRNA, LNP-S, PF, 30 mcg/0.3 mL dose 1 completed Not Available [facility] 09/05/2022 05:07:10 COVID-19, mRNA, LNP-S, PF, 30 mcg/0.3 mL dose 1 completed Not Available [facility] 09/05/2022 05:07:10 COVID-19, mRNA, LNP-S, PF, 30 mcg/0.3 mL dose 1 completed Not Available [facility] 09/05/2022 05:07:10 Influenza, high-dose, trivalent, PF 5 completed Not Available [facility] 09/05/2022 05:07:10 Influenza, split virus, quadrivalent, PF 2 completed Not Available [facility] 09/05/2022 05:07:10 Influenza, split virus, quadrivalent, PF 1 completed Not Available [facility] 09/05/2022 05:07:10 Influenza, split virus, quadrivalent, PF 0 completed Not Available [facility] 09/05/2022 05:07:11 Past Encounters Encounter ID Performer Location Encounter Start Date Encounter Closed Date Diagnosis/Indication Diagnosis SNOMED-CT Code Diagnosis ICD10 Code Diagnosis IMO Codes Diagnosis Note [id number] MD WILFREDO Ny IGRATION_ DEFAULT_1 _1 , 10/25/2020 00:00:00 10/25/2020 16:51:56 [id number] MD WILFREDO Ny IGRATION_ DEFAULT_1 _1 , 04/18/2021 00:00:00 04/18/2021 17:39:40 [id number] MD DAYANA Iglesias_[facility] Internal Med [facility] [address] [facility] 15 [place] [address] 04/27/2021 00:00:00 04/28/2021 10:08:36 [id number] MD DAYANA Iglesias_G Internal Med [facility] [address] [address] 05/25/2021 00:00:00 05/25/2021 11:16:59 [id number] Selina corrales MD [facility] Internal Med [facility] [address] [place] [address] Ave[address] [address] 11/07/2021 00:00:00 11/07/2021 11:08:59 [id number] Selina corrales MD [facility] Internal Med [facility] [address] [place], [place] [address]e., [address] [address] 05/22/2022 00:00:00 05/22/2022 11:07:50 [id number] Selina corrales MD [facility] Internal Med [facility] [address] [place], [place] [address]., [address] [address] 11/20/2022 09:49:12 11/20/2022 10:29:33 Type 2 diabetes mellitus without complication 133635538 E11.9 on metformin, Ozempic, side effects/ri sks/benefi ts discussedh e denies any personal/f amily hx of MEN II or MTC, or pancreatit ishe knows to call the office if any abdominal pain or n/v occurs Hyperlipidemia 83645112 E78.5 on atorvastat in Essential hypertension 24008004 I10 on lisinopril History of placement of stent for coronary artery disease 161362601 Z95.5 Follows cardiology - Dr. Anali Brennan/Sindy Hurtado at [facility] isosorbide , metoprolol , has prn NTGhas stress test scheduled later this month (regular follow up, not having chest pain) Human immunodeficiency virus infection 97495281 B20 Follows [place]- [facility] on [address] Onychomyco sis of toenails 010841744 B35.1 improved after terbinafin eadvised the diseased nail will continue to grow out with time Sleep apnea 01949460 G47 .30 Check home sleep study Adult heal th examination 836457408 Z00.01 Depression screening 171 859901 Z13.31 Body mass index 25-29 - overweight 634891451 Z68.25 recommend healthy, well balanced mealsfocus on lean meats, fresh vegetables , fresh fruits, whole grainsredu ce fast/proce ssed foods or eating out to no more than 1-2 times per weekaim to get 30 min of exercise most days of the week- walking is a great choicealso recommend resistance training 2-3 times per week [id number] Selina corrales MD [facility] Internal Med [address] [facility] [address] , [place] [address] 05/22/2023 14:29:15 05/22/2023 15:04:39 Type 2 diabetes mellitus without complication 250896170 E11.9 on metformin, Ozempic, side effects/ri sks/benefi ts discussedh e denies any personal/f amily hx of MEN II or MTC, or pancreatit ishe knows to call the office if any abdominal pain or n/v occurs Hyperlipidemia 00863362 E78.5 on atorvastat incardiolo gy managed lipid panel Essential hypertension 43084303 I10 on lisinopril History of placement of stent for coronary artery disease 630891166 Z95.5 Follows cardiology - Dr. Anali Brennan/Sindy Hurtado at [facility] isosorbide , metoprolol , has prn NTG Human immunodeficiency virus infection 84374811 B20 Follows [place]- [facility] on [address] Sleep apnea 94306789 G47 .30 sleep study 12/2022- just under threshold for apnea Body mass index 25-29 - overweight 732615135 Z68.25 recommend healthy, well balanced mealsfocus on lean meats, fresh vegetables , fresh fruits, whole grainsredu ce fast/proce ssed foods or eating out to no more than 1-2 times per weekaim to get 30 min of exercise most days of the week- walking is a great choicealso recommend resistance training 2-3 times per week Screening for malignant neoplasm of prostate 556811160 Z12.5 Health Concerns Section Related Observation LastModified by Organization Detai ls LastModified Time None Recorded Concern Status LastModified by Organization Details LastModified Time None Recorded Advance Directives Directive N: Payers Insurance Date Sequence Insurance Name Policy Number Policy Tucker Covered Member ID Tucker Member ID Guarantor Name 11/20/2022 1 [employer] - DOS ON OR AFTER 21 - [facility] BENEFITS PLAN (PPO) Kiel Cristina [id number] OI Kiel Cristina Notes Date Note Type Note Provider Name and Address Organization Details Recorded Time 11/20/2022 text/html Kiel presents today for follow-up. He is also due for his annual wellness exam. He reports his blood sugars have been well controlled at home. He denies any issues with any of his medications. He reports he recently did see his hand i thermal cutter. They were concerned as his heart rate was a little bit elevated so they started him on a low dose of metoprolol. He has been tolerating that well. Last visit, I started him on terbinafine for the onychomycosis of his toenails. He reports that he had no issues with the medication and the nails are now starting to grow out and are normal. He complains today of some fatigue. He reports when he wakes up in the morning he is very tired and does not feel rested. He sometimes will wake up gasping for air and feel like his mouth is dry. He does snore. He has never been checked for sleep apnea. Reports his father has pretty severe sleep apnea. His next appointment with his infectious disease doctor is next week. He is due for labs. DUC Arguello [address], [place], [address], [facility] [employer] 11/20/2022 11:44:16 05/22/2023 text/html Kiel presents today for follow-up. He reports he recently had all of his labs done with the exception of his PSA at his infectious disease doctors. He reports the A1c was under 7 and his glucose was 130s. He is tolerating the Ozempic without issue. He reports about 6 weeks ago he was on a long car ride. Ever since that time he has had some left shoulder pain. It feels very stiff any has some pain with range of motion right around 90 . Right now he is not interested in trying any medications, getting any imaging, or any referrals. He wants to see if it resolved on its own. He already had his flu vaccine with his infectious disease doctor. DUC Arguello [address], [address], [place], [address], [place] [facility] 05/22/2023 17:25:21
== END 2025-05-26 15:28 | disposition home or self-care (01) ==
PROVIDERS: Emergency Provider Nurse Practitioner
DX: J06.9 Acute upper respiratory infection, unspecified (principal); I10 Essential (primary) hypertension; E11.9 Type 2 diabetes mellitus without complications; Z79.84 Long term (current) use of oral hypoglycemic drugs
CPT/HCPCS: 71046; 99203; G0463